=== PATIENT | female | born 1965 | race Caucasian/White ===

== ENCOUNTER → 2018-04-13 15:11 | Outpatient (CLI) | payer OTHER, SELFPAY ==
--- NOTE | 2018-04-13 15:14 | DI.RAD.S_ITS ---
PROCEDURE: XR ANKLE RT MIN 3V INDICATIONS: EDEMA OF LOWER EXTREMITY,OSTEOARTHRITIS,OBESITY TECHNIQUE: 3 views of the ankle were acquired. COMPARISON: [facility], , ANKLE 3 VIEWS RIGHT, 11/17/2013, 15:58. FINDINGS: Bones: No fractures or dislocations. Ankle mortise is normally aligned. No suspicious bony lesions. Accessory ossicles versus old avulsions distal to the medial malleolus again noted. There are additional dystrophic calcifications over the ankle anteromedially, likely degenerative or posttraumatic. Small exostosis medial margin of the medial malleolus. Small plantar spur posterior calcaneus. Soft tissues: Lateral soft tissue swelling. No tibiotalar joint effusion. Achilles tendon appears normal. IMPRESSION: 1. No acute fracture or mortise asymmetry. 2. Increasing periarticular calcifications. Interval development of small exostosis medial malleolus. Dictated by: Brenden Fernandez M.D. on 04/13/2018 at 15:42 Approved by: Brenden Fernandez M.D. on 04/13/2018 at 15:46
[2018-04-13 16:25] LABS: Add Manual Diff / Slide Review NO; Basophils Percent Auto 0.9 % (0-2); Hematocrit 39.9 % (36-46); Hemoglobin 13.5 g/dL (12.0-16.0); Mean Corpuscular HGB Conc 33.8 % (30-36); Mean Corpuscular Hemoglobin 31.8 PG (26-34); Mean Corpuscular Volume 94.2 fL (80-100); Monocytes Percent Auto 7.7 % (3-14); Neutrophils Absolute Auto 4100 /uL (3000-5900); Neutrophils Percent Auto 50.4 % (50-75); Platelet Count 337 X10^3/uL (150-400); Red Blood Cell Count 4.24 X10^6/uL (4.0-5.2); Red Cell Distribution Width 13.2 % (11.6-14.8); White Blood Cell Count 8.1 X10^3/uL (4.5-11.0)
[2018-04-13 16:26] LABS: D Dimer < 200 ng/mL (<230)
[2018-04-13 16:56] LABS: Alanine Aminotransferase 38 IU/L (9-52); Albumin 4.7 g/dL (3.5-5.0); Albumin Globulin Ratio 1.6 (1.0-2.8); Alkaline Phosphatase 86 U/L (38-126); Aspartate Aminotransferase 22 IU/L (14-36); Bilirubin Total 0.5 mg/dL (0.2-1.3); Blood Urea Nitrogen 18 mg/dL (7-17); C-Reactive Protein Quant 0.7 mg/dL (<1.0); Carbon Dioxide 27 mmol/L (22-32); Chloride 101 mmol/L (98-107); Estimated Glomerular Filt Rate > 60.0 mL/min (>60); Glucose 95 mg/dL (70-100); HEMOLYSIS < 15 (0-50); Potassium 4.3 mmol/L (3.4-5.1); Sodium 141 mmol/L (137-145); Total Protein 7.7 g/dL (6.3-8.2)
[2018-04-13 17:25] LABS: Erythrocyte Sedimentation Rate 11 MM/HR (0-20)
== END ==
PROVIDERS: PCP Family Medicine; Visit Provider Internal Medicine
DX: M84.871 Other disorders of continuity of bone, right ankle and foot (principal); R60.0 Localized edema; M19.90 Unspecified osteoarthritis, unspecified site; E66.9 Obesity, unspecified
CPT/HCPCS: 36415; 73610; 80053; 84443; 85025; 85379; 85651; 86140

== ENCOUNTER → 2018-08-06 17:31 | Outpatient (CLI) | payer OTHER, SELFPAY ==
[2018-08-06 17:49] LABS: Hematocrit 37.5 % (36-46); Hemoglobin 12.7 g/dL (12.0-16.0); Mean Corpuscular HGB Conc 33.8 % (30-36); Mean Corpuscular Hemoglobin 32.2 PG (26-34); Mean Corpuscular Volume 95.3 fL (80-100); Platelet Count 307 X10^3/uL (150-400); Red Blood Cell Count 3.93 X10^6/uL (4.0-5.2); Red Cell Distribution Width 13.9 % (11.6-14.8); White Blood Cell Count 8.9 X10^3/uL (4.5-11.0)
[2018-08-06 18:07] LABS: Alanine Aminotransferase 39 IU/L (9-52); Albumin 4.7 g/dL (3.5-5.0); Albumin Globulin Ratio 1.7 (1.0-2.8); Alkaline Phosphatase 67 U/L (38-126); Aspartate Aminotransferase 24 IU/L (14-36); BUN Creatinine Ratio 25.7 (6-22); Bilirubin Total 0.4 mg/dL (0.2-1.3); Bilirubin Unconjugated 0.1 mg/dL (0.0-1.1); Blood Urea Nitrogen 18 mg/dL (7-17); Calcium 9.6 mg/dL (8.4-10.2); Carbon Dioxide 30 mmol/L (22-32); Chloride 105 mmol/L (98-107); Cholesterol 203 mg/dL (140-199); Estimated Glomerular Filt Rate > 60.0 mL/min (>60); Globulin 2.8 g/dL (1.7-4.1); Glucose 88 mg/dL (70-100); HDL Cholesterol 64 mg/dL (40-60); HEMOLYSIS < 15 (0-50); LDL Cholesterol Calculated 94 mg/dL (<100); Potassium 4.7 mmol/L (3.4-5.1); Sodium 145 mmol/L (137-145); Total Protein 7.5 g/dL (6.3-8.2); Triglycerides 224 mg/dL (35-150)
== END ==
PROVIDERS: PCP Family Medicine; Visit Provider Podiatrist
DX: B35.1 Tinea unguium (principal); E66.9 Obesity, unspecified; Z13.1 Encounter for screening for diabetes mellitus; Z13.220 Encounter for screening for lipoid disorders
CPT/HCPCS: 36415; 80053; 80061; 80076; 85027

== ENCOUNTER → 2018-10-07 10:38 | Outpatient (CLI) | payer OTHER, SELFPAY | PROVIDERS: Family Provider Family Medicine; PCP Family Medicine; Visit Provider Family Medicine | DX: J02.9 Acute pharyngitis, unspecified (principal) | CPT/HCPCS: 87070 ==

== ENCOUNTER → 2018-11-11 18:16 | Outpatient (REF) | payer OTHER, SELFPAY | LOC: LAB 18:16 | PROVIDERS: Family Provider Family Medicine; PCP Family Medicine; Visit Provider Otolaryngology | DX: J32.9 Chronic sinusitis, unspecified (principal); R51 Headache; H65.03 Acute serous otitis media, bilateral; H69.83 Other specified disorders of Eustachian tube, bilateral; J34.89 Other specified disorders of nose and nasal sinuses | CPT/HCPCS: 87070 ==

== ENCOUNTER → 2018-12-18 07:42 | Outpatient (CLI) | payer OTHER, SELFPAY ==
--- NOTE | 2018-12-18 | DI.CT.S_ITS ---
PROCEDURE: CT SINUS SCREEN WO CON INDICATIONS: FACIAL PAIN, NASAL OBSTRUCTION TECHNIQUE: Noncontrast 3.0 mm axial images acquired from the frontal sinuses to the mid-sella, with coronal and sagittal reformats. For radiation dose reduction, the following was used: automated exposure control, adjustment of mA and/or kV according to patient size. COMPARISON: None. FINDINGS: Image quality: Excellent. The paranasal sinuses are normally aerated. No mucosal thickening identified. No air-fluid levels identified. The osteomeatal units are patent bilaterally. No osseous thickening, osseous remodeling or osseous erosive changes. 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 Nasal septum is midline. No eliezer bullosa or paradoxical turbinates. Left lamina bullosa noted. Type I cribriform plate is noted. No variance in the ethmoid roof anatomy. The anterior ethmoid artery notches are protected bilaterally. The sphenoid sinus pneumatization pattern is sellar complete. The sphenoid intersinus septum is deviated to the right and attaches to the right osseous optic canal. IMPRESSION: No paranasal sinus mucosal thickening or air-fluid levels. Dictated by: Janina Blanco MD, PhD on 12/18/2018 at 10:06 Approved by: Janina Blanco MD, PhD on 12/18/2018 at 10:11
== END ==
PROVIDERS: Family Provider Family Medicine; PCP Family Medicine; Visit Provider Otolaryngology
DX: R51 Headache (principal); J34.89 Other specified disorders of nose and nasal sinuses; J34.2 Deviated nasal septum
CPT/HCPCS: 70486

== ENCOUNTER → 2019-01-15 13:21 | Outpatient (CLI) | payer OTHER, SELFPAY ==
[2019-01-15 14:19] LABS: Hematocrit 40.2 % (36-46); Hemoglobin 13.5 g/dL (12.0-16.0); Mean Corpuscular HGB Conc 33.6 % (30-36); Mean Corpuscular Hemoglobin 31.8 PG (26-34); Mean Corpuscular Volume 94.7 fL (80-100); Platelet Count 358 X10^3/uL (150-400); Red Blood Cell Count 4.25 X10^6/uL (4.0-5.2); Red Cell Distribution Width 13.8 % (11.6-14.8); White Blood Cell Count 9.2 X10^3/uL (4.5-11.0)
[2019-01-15 15:02] LABS: BUN Creatinine Ratio 25.7 (6-22); Blood Urea Nitrogen 18 mg/dL (7-17); Calcium 9.8 mg/dL (8.4-10.2); Carbon Dioxide 26 mmol/L (22-32); Chloride 101 mmol/L (98-107); Estimated Glomerular Filt Rate > 60.0 mL/min (>60); Glucose 101 mg/dL (70-100); HEMOLYSIS < 15 (0-50); Potassium 4.3 mmol/L (3.4-5.1); Sodium 140 mmol/L (137-145)
== END ==
PROVIDERS: PCP Family Medicine; Visit Provider Orthopaedic Surgery Orthopaedic Surgery of the Spine
DX: Z01.818 Encounter for other preprocedural examination (principal)
CPT/HCPCS: 36415; 80048; 85027

== ENCOUNTER 2019-02-03 06:58 | Inpatient (IN) | payer OTHER, SELFPAY ==
[2019-01-19 08:27] VITALS: BMI 39.4
[2019-02-03] VITALS (21 sets, daily range): BP systolic 105–140; BP diastolic 50–85; PULSE 68–96; RESP 10–20; TEMP 36.3–37.4; O2SAT 80–97; BMI 39.4
--- NOTE | 2019-02-03 | DI.RAD.S_ITS ---
PROCEDURE: XR LUMBAR SPINE 2-3V INDICATIONS: L3-4 TLIF FINDINGS: 2 limited intraoperative fluoroscopically stored images of the lower lumbar spine were obtained for intraoperative hardware localization purposes. These images are not meant for diagnostic purposes. Intraoperative findings related to a L3 for discectomy and fusion procedure are present. IMPRESSION: Intraoperative images obtained during the patient's lumbar fusion procedure. Dictated by: Vaibhav Mccarthy M.D. on 02/03/2019 at 11:13 Approved by: Vaibhav Mccarthy M.D. on 02/03/2019 at 11:14
--- NOTE | 2019-02-03 08:38 | SUR.OPER ---
Prone on spine table, head in foam head support, padded chest and pelvic supports, gel pad at knees, lower legs supported by pillows; nipples, genitalia and toes free of pressure, arms secured on foam padded arm boards at <90 degrees abduction. Tape over blanket at thigh secured to table.
[2019-02-03] MEDS: CLINDAMYCIN 900 MG/50 ML PIGGYBACK 50 MG IV ×2 (08:50→18:04)
[2019-02-03] MEDS: BUPIVACAINE 0.25% W/ EPI 30 ML VIAL INJ (09:31)
[2019-02-03] MEDS: BUPIVACAINE LIPOSOME 266 MG/20 ML VIAL INJ (09:34)
[2019-02-03] MEDS: LACTATED RINGERS 1,000 ML 42 ML IV (11:13)
--- NOTE | 2019-02-03 11:33 | PM.OP.1 ---
Operative Date/Time/Diagnoses Date of procedure: 02/03/19 Time of procedure: 09:19 Pre-op diagnosis: 1. L3-4 spondylolisthesis 2. L3-4 spinal stenosis Post-op diagnosis: same Procedure & Clinicians Procedure: 1. L3-4 Postero-lateral and posterior interbody fusion 2. L3-4 interbody cage placement. 3. L3-4 decompressive laminectomy with bilateral facetecomies 4. L3-4 Posterior non-segmental instrumentation 5. [place] of bone marrow from iliac crest 6. Utilization of microsurgical technique and operating microscope Same procedure as scheduled: Yes Indications: Patient has been having chronic back pain and worsening lumbar radiculopathy. Patient failed multiple conservative management with worsening pain weakness and numbness in her lower extremity. Patient has been having difficulty performing activity of daily living. After discussing risks benefits of treatment options, patient elected proceed with surgery. Surgeon: Buddy Johns Metal Grinder: Gillian Tarango Click Yes if Unassisted: No Anesthesia Type: General Operative Notes Closure Type: primary Specimen(s): none sent Prosthetic devices, grafts, tissues, transplants, or devices: Globus revolve, Rise cage Estimated Blood Loss (mL): 50 Blood products transfused: none Procedure in detail: Patient was seen in the preoperative area. Risks and benefits of the surgery was discussed with the patient. Informed consent was obtained from the patient and placed in the chart. Surgical site was marked. Patient was taken to the operative room. General anesthesia was administered. Prophylactic antibiotic was given to the patient less than 30 min before the incision was made. Patient was placed into a prone position on the Noah table. Patient's back was then prepped and draped in the sterile fashion. Time-out was performed at this time. Using AP and lateral C-arm imaging the interval between L3-4 was identified and marked on patient's back. A 2 inch incision 2 in from midline was made on the right side first. The fascia was incised in line with skin incision. Globus MARS retractors was placed inside the incision and docked onto the L3 lamina. Using microsurgical technique and operating microscope, a L3 laminectomy and L3-4 facetectomy was performed using a Kerrison rongeur. the patient was found have moderate central and severe neural foramen stenosis. More than 75% of the facet was removed in the process of decompression which rendered the L3-4 level grossly unstable and warranted a fusion procedure. The disc space at L3-4 was identified. And a total diskectomy was performed at L3-4 level. The endplates were decorticated using a rasp and shaver. The total diskectomy and decortication was performed at L3-4 level in order to to accomplish a L3-4 fusion. The local bone from the laminectomy and facetectomy was saved for local bone grafting. After the total diskectomy and decortication was completed, Globus viacell bone graft material was combined with local bone that was harvested earlier. At this time, a separate skin is incision was made over the iliac crest. A Jamshidi needle was inserted into the iliac crest through a separate skin incision. 5 cc of bone marrow aspiration was obtained through the separate skin incision using a Jamshidi needle from the iliac crest. The bone marrow aspiration was combined with local bone and the Bio4 bone grafting material. The bone grafting material was placed into the L3-4 interbody space along with a expandable cage. The cage was expanded to its maximum height using the torque limiting screwdriver. At this time a mirror image incision was made on the left side. The fascia was incised in line with the skin incision. Globus MARS retractor was inserted and docked onto the L3-4 posterolateral gutter. Using the power drill, posterior-lateral decortication was performed at L4-5 level until bleeding cortical bone was identified. The remaining bone grafting material was placed into the L4-5 posterior lateral gutter he order to accomplish posterolateral fusion at the L4-5 level. Using the double C-arm technique, pedicle screws were placed into the L4-5 pedicles bilaterally. This was done by placing the Jamshidi needle into the pedicles, then placing the guidewires over the Jamshidi needle, and finally placing the cannulated screws over the guidewires bilaterally. After the pedicle screws were placed, 2 titanium rods was locked into the heads of the pedicle screws using locking caps and torque limiting screwdriver. After all the hardware was placed, and confirmed with AP and lateral C-arm imaging, the wound was then irrigated with sterile normal saline and packed with Ray-Wing gauze for 3 min to accomplish hemostasis. After the gauze was removed the deep fascia was closed with #1 Vicryl suture. The subcutaneous layer was closed with 2-0 Vicryl. The skin was closed with skin johnathon. Patient tolerated the procedure well. There were no complications. Complications: none Condition: stable Disposition: PACU Plan for aftercare: Admit to inpatient hospital
[2019-02-03] MEDS: LORazepam 2 MG/ML SYRINGE 0.5 MG IV ×2 (11:51→12:30)
[2019-02-03] MEDS: fentaNYL 100 MCG/2 ML INJ 50 MCG IV (11:55)
[2019-02-03] MEDS: hydrOXYzine 50 MG/ML INJ IM (12:13)
[2019-02-03] MEDS: SODIUM CHLORIDE 0.9% 1,000 ML 100 ML IV (13:40)
--- NOTE | 2019-02-03 14:08 | PC.NURSE ---
Addendum entered by Ann Rogers R.N. 02/03/19 14:26: PAIN - more alert, watching tv with sister at bedside, states pain 6 on scale 0/10, has been taking oxycodone prior to surg, given 10mg po now with juice and crackers. Original Note: POST OP ARRIVAL 1310 - drowsy, responds to voice, opens eyes, speech clear, states back discomfort 6 on scale 0/10, barrier dsg cdi, bs clear, 3l 93-94%, per Ray in pacu, given ativan prior to tsf to floor for discomfort and spasm, ice pack applied with repositioning, pt able to answer questions, quickly returns to sleep with light snore unless aroused, family at bedside, given few ice chips when alert, footie scd on, denies numbness to le or feet, moving easily on command.
[2019-02-03] MEDS: ACETAMINOPHEN 325 MG TABLET 650 MG PO (14:18)
[2019-02-03] MEDS: OXYCODONE IR 5 MG TABLET 10 MG PO ×4 (14:22→23:33)
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
--- NOTE | 2019-02-03 19:09 | PC.NURSE ---
Patient resting in bed most of the shift. Up to the bathroom earlier this shift. Had some ice packs to back that started leaking. Pt able to get oob with SBA and FWW, gait steady, CMS(+). Dry clothes put on and bedding. Percolone effective for pain control.
[2019-02-03] MEDS: SENNOSIDES 8.6 MG TABLET 17.2 MG PO (19:54)
[2019-02-03] MEDS: hydrOXYzine pamoate 25 MG CAPSULE PO (19:55)
[2019-02-03] MEDS: DOCUSATE 100 MG CAPSULE PO (19:55)
[2019-02-03] MEDS: AMITRIPTYLINE 25 MG TABLET PO (19:55)
[2019-02-04] MEDS: SODIUM CHLORIDE 0.9% 1,000 ML 100 ML IV (00:52)
[2019-02-04] MEDS: hydrOXYzine pamoate 25 MG CAPSULE PO ×3 (01:21→20:00)
[2019-02-04] MEDS: CLINDAMYCIN 900 MG/50 ML PIGGYBACK 50 MG IV (02:17)
[2019-02-04] MEDS: OXYCODONE IR 5 MG TABLET 10 MG PO ×2 (02:33→05:52)
[2019-02-04] MEDS: HYDROMORPHONE 1 MG INJ 0.5 MG IV (04:48)
[2019-02-04 05:51] VITALS: BP 99/53; PULSE 66; RESP 16; TEMP 37.1; O2SAT 95
[2019-02-04 06:09] LABS: Hematocrit 34.7 % (36-46); Hemoglobin 11.6 g/dL (12.0-16.0)
--- NOTE | 2019-02-04 07:16 | PM.PNPO.1 ---
Subjective Date Patient Seen: 02/04/19 Interval history: Patient is seen bedside status post L3-4 TLIF POD #1. Patient is moving well, however she is in significant pain. oxycodone 10 mg along with Dilaudid IV are not enough to control her pain to a reasonable level. She denies any numbness and tingling. No fevers chills shortness of breath chest pain Exam Vital Signs (past 8 hours): - 02/03/19 23:45 02/04/19 05:51 Temperature 98.8 F 98.8 F Pulse Rate 68 66 Respiratory Rate 16 16 Blood Pressure 105/50 L 99/53 L Pulse Oximetry 93 95 Oxygen Delivery Method Nasal Cannula Oxygen Flow Rate 0 Narrative Exam Narrative: Well-developed, well-nourished, no acute distress. Alert and oriented to person, place, and time. Dressing on lumbar spine is clean, dry, and intact with no signs of drainage. Minimal erythema and generalized swelling around the surgical site. Neurovascularly intact in bilateral lower extremities with soft and compressible calves. Range of motion intact bilateral lower extremities. Objective Labs Result Diagrams: 02/04/19 05:00 Labs: Laboratory Results - last 24 hr 02/04/19 05:00 Hgb 11.6 L Hct 34.7 L Assessment & Plan Post-op Postoperative Procedures Operation Date: 02/03/19 08:45 Actual Procedures Side Surgeon p L3-4 TLIF Buddy Johns MD 1. Postop day 1. Status post above procedure-add steroid burst to help with the pain along with gabapentin. DC IV Dilaudid due to low blood pressure. Add a 15 mg dose of oxycodone as needed for severe pain. PT/OT with lumbar precautions. Possible DC tomorrow if pain is controlled.
[2019-02-04 07:20] VITALS: BP 105/60; PULSE 62; RESP 16; TEMP 36.8; O2SAT 94
[2019-02-04] MEDS: OXYCODONE IR 5 MG TABLET 15 MG PO ×5 (08:40→21:43)
[2019-02-04] MEDS: GABAPENTIN 100 MG CAPSULE 200 MG PO ×3 (08:41→20:44)
[2019-02-04] MEDS: DOCUSATE 100 MG CAPSULE PO ×2 (08:42→20:44)
[2019-02-04] MEDS: DEXAMETHASONE 4 MG TABLET 8 MG PO (08:42)
[2019-02-04] MEDS: FLUTICASONE 120 SPRAY/16 GM SPRAY.SUSP NASAL (08:43)
--- NOTE | 2019-02-04 09:26 | PT.IPTN ---
Current Diagnoses Foot drop, right foot (02/03/19) Spondylolisthesis, lumbar region (02/03/19) Spinal stenosis, lumbar region without neurogenic claudication (02/03/19) Surgery Performed Operation Date: 02/03/19 08:45 Actual Procedures p L3-4 TLIF - Buddy Johns MD Physical Therapy Treatment Note M2 PT-IP Current Condition Start: 02/03/19 17:01 Freq: NEEDED Status: Active Protocol: Document 02/03/19 15:44 AB (Rec: 02/03/19 17:17 AB [id number]) Physical Therapy Current Condition Current Condition Evaluation Date 02/03/19 Treatment Diagnosis L3-4 fusion/lami; difficulty in walking Onset Date 02/03/19 Precautions Lumbar Precautions Log Roll No Twisting Limit Bending Lifting Restriction of 10 lbs Gait Belt above Incisional Area M3 PT-IP Subjective Start: 02/03/19 17:01 Freq: NEEDED Status: Active Protocol: Document 02/04/19 09:26 AB (Rec: 02/04/19 10:58 AB [id number]) Subjective Physical Therapy Visit Type Type Treatment Note Visit Start Time 09:26 Visit Stop Time 10:14 Total Visit Minutes 48 Number of FISH DRIER Visits 0 Physical Therapy Visit Comments Patient Comments pt agreeable to do PT Therapy Pain Assessment Pain When Pain Assessed At Rest Pain Present Pain Present Pain Reported Location Back Intensity 5 Scale Used Numeric (1 - 10) Pain Management Techniques Re-positioning Timing of Activity with Medications M4 PT-IP Mobility and Gait Start: 02/03/19 17:01 Freq: NEEDED Status: Active Protocol: Document 02/04/19 09:26 AB (Rec: 02/04/19 10:58 AB [id number]) PT-Bed Mobility Assessment Supine to Sit Supine to Sit Standby Assistance Head of Bed Elevated Sit to Supine Sit to Supine Standby Assistance PT-Transfer Assessment Sit to and From Stand Sit to and from Stand Contact Guard Assistance Equipment Transfer Assistive Device Gait Belt Front Wheeled Walker Comments Mobility Comments pt in bed with HOB elevated. pt stated that she will use her recliner to sleep on at home and wants to get out of bed with HOB elevated during tx session. pt completed with cues to maintain back precautions SBA. pt agreed to do log roll technique getting back into bed requiring SBA and cues for technique. caregiver training initiated with daughter assisting pt and daughter was able to don safety belt on pt and assist pt with sit to stand and ambulation. also assisted pt with stair training. pt completed sit <> stand x 4 reps CGA and cues for techniques. Gait Assessment Gait Gait Assistance Required: Standby Assistance Contact Guard Assist Distance (Feet) 150 Able to Maintain Weight Bearing Status Yes During Gait Assistive Devices Assistive Device Gait Belt Front Wheeled Walker Orthotic/Prosthetic Devices or Brace: No Gait Deviations General Gait Pattern Antalgic Factors Limiting Gait Function Factors Limiting Gait Function Decreased Activity Tolerance Decreased Strength Limited Range of Motion Pain Comments Gait Comments pt completed ambulation 150 ft + 100 ft using FWW CGA. Stair Climbing Assessment Evaluation Level of Assist On Stairs Contact Guard Assistance Devices Stair Climbing Assistive Devices Straight Cane Technique/Endurance Stair Climbing Direction Ascend and Descend Stair Climbing Technique Step to Step Number of Steps Climbed 1 Query Text: Stair Climbing Set # Repetitions (reps) 2 M5 PT-IP Objective Assessments Start: 02/03/19 17:01 Freq: NEEDED Status: Active Protocol: Document 02/03/19 15:44 AB (Rec: 02/03/19 17:17 AB [id number]) Orientation Orientation/Cognition Level of Alertness Alert Orientation Name Age Birthday Month Date Year Day of Week Place Situation Safety Awareness Decreased Safety Awareness Memory Description Short Term Impaired Gross Range of Motion Lower Extremity ROM Assessment Within Functional Limits Strength Lower Extremity Strength Assessment Bilaterally Impaired Hip 4-/5 Knee 4-/5 Coordination Assessment Gross Coordination Gross Coordination WNL Sensation Assessment Sensation Gross Sensation WNL Muscle Tone Muscle Tone WNL Yes M6 PT-IP Treatment Start: 02/03/19 17:01 Freq: NEEDED Status: Active Protocol: Document 02/04/19 09:26 AB (Rec: 02/04/19 10:58 AB [id number]) Physical Therapy Treatment Education Education Provided Precautions Safety M7 PT-IP Assessment and Plan Start: 02/03/19 17:01 Freq: NEEDED Status: Active Protocol: Document 02/04/19 09:26 AB (Rec: 02/04/19 10:58 AB [id number]) PT Summary Assessment and Plan Potential Rehabilitation Potential Good Summary Impairments Pain ROM Strength Balance Coordination Sensation Tone Bed Mobility Transfers Gait Activity Tolerance Progress Towards Goals Progressing Toward Goals Assessment Summary pt progressing with mobility. caregiver training initiated and daughter was able to assist pt safely. pt may go home when medically stable. Goals Bed Mobility Goal Independent Transfer Goal Independent Front Wheeled Walker Gait Goal Independent Front Wheel Walker Gait Distance 200 Other Goals up/down 2 steps using FWW/ SPC SBA Days to Meet Goals 3 Frequency of Treatment Frequency Of Treatment Twice a Day Treatment Plan Physical Therapy Treatment Plan Bed Mobility Training Transfer Training Gait Training Therapeutic Exercise Balance Retraining Post Op Education Discharge Planning Hot or Cold Pack Neuromuscular Re-ed Coordination Retraining Manual Therapy Other Recommendations and Next Treatment bed mobility, ambulation, Focus stair climbing, caregiver training Recommendations To Nursing Amount of Assist Needed 1 Person Assist Discharge Recommendations PT Discharge Recommendations Home with Assistance Equipment Needed for Home Before FWW/SPC: pt will try to Discharge acquire AD
[2019-02-04 11:19] VITALS: BP 115/62; PULSE 73; RESP 16; TEMP 36.6; O2SAT 93
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
--- NOTE | 2019-02-04 11:44 | PC.NURSE ---
Addendum entered by Ann Rogers R.N. 02/04/19 13:53: MS/PAIN - given 15mg po oxycodone at lunch for afternoon phys therapy, then up w/fww, ambul hallway with PT, gait steady, reports that pain is much better. Original Note: AM NOTE - pt was up to chair before breakfast, states back discomfort 6 on scale 0/10 and has had some difficulty getting comfortable in bed or chair, barrier dsg back with small amt shadow drainage, Fara Aly PA-C in this am and discussed pain mgt, new orders rec'd and started po dexamethasone, gabapentin and after breakfast given 15mg po oxycodone, able ambul with phys therapy with medication providing adequate relief.
--- NOTE | 2019-02-04 12:48 | CM.IDA ---
Discharge Planning/Care Management CM Discharge Assessment Start: 02/04/19 12:43 Freq: Status: Active Protocol: Document 02/04/19 12:43 EILEEN (Rec: 02/04/19 12:48 EILEEN [id number]) Discharge Planning Assessment Assigned Desk Director ANDRIA Willett DPOA/Assigned Designee Name Shannen natalee Mckee Contact Information [phone] Advance Directives? Yes Advance Directives on File Yes History Provided By Patient Prior Living Arrangements Apartment/Condo Household Members none Type of transporation used prior to Drives own vehicle admit Independent with ADL's Yes Is patient alert and oriented? Yes Barriers to Discharge No Comment Pt is POD#1 from Spinal surgery w/ Dr Johns. Payer: [employer]. Reviwed chart. Met w/pt and explained role. Pt says she did not sleep well last night and would like to take a nap. PT has cleared pt for return home w/dtr to assist. Pt states no barriers to DC home, denies SW needs. P: Home, likely Friday, no anticipated needs. ANDRIA Landis Discharge Plan Home Transportation Arrangement Family Referrals Initiated None needed Whiteboard Updated in Patient Room with Yes name and ext. # of Desk Director Review Status In Process
--- NOTE | 2019-02-04 13:20 | PT.IPTN ---
Current Diagnoses Foot drop, right foot (02/03/19) Spondylolisthesis, lumbar region (02/03/19) Spinal stenosis, lumbar region without neurogenic claudication (02/03/19) Surgery Performed Operation Date: 02/03/19 08:45 Actual Procedures p L3-4 TLIF - Buddy Johns MD Physical Therapy Treatment Note M2 PT-IP Current Condition Start: 02/03/19 17:01 Freq: NEEDED Status: Active Protocol: Document 02/03/19 15:44 AB (Rec: 02/03/19 17:17 AB [id number]) Physical Therapy Current Condition Current Condition Evaluation Date 02/03/19 Treatment Diagnosis L3-4 fusion/lami; difficulty in walking Onset Date 02/03/19 Precautions Lumbar Precautions Log Roll No Twisting Limit Bending Lifting Restriction of 10 lbs Gait Belt above Incisional Area M3 PT-IP Subjective Start: 02/03/19 17:01 Freq: NEEDED Status: Active Protocol: Document 02/04/19 13:20 AB (Rec: 02/04/19 14:07 AB [id number]) Subjective Physical Therapy Visit Type Type Treatment Note Visit Start Time 13:20 Visit Stop Time 13:53 Total Visit Minutes 33 Number of PROSTHODONTIST/EDUCATOR Visits 0 Physical Therapy Visit Comments Patient Comments pt agreeable to do PT Therapy Pain Assessment Pain When Pain Assessed At Rest Pain Present Pain Present Pain Reported Location Back Intensity 2 Scale Used Numeric (1 - 10) Pain Management Techniques Timing of Activity with Medications M4 PT-IP Mobility and Gait Start: 02/03/19 17:01 Freq: NEEDED Status: Active Protocol: Document 02/04/19 13:20 AB (Rec: 02/04/19 14:07 AB [id number]) PT-Bed Mobility Assessment Supine to Sit Supine to Sit Standby Assistance Bedrails Sit to Supine Sit to Supine Standby Assistance Scooting Scooting to Edge of Bed Standby Assistance Scooting Up and Down in Bed Standby Assistance PT-Transfer Assessment Sit to and From Stand Sit to and from Stand Standby Assistance Contact Guard Assistance Equipment Transfer Assistive Device Gait Belt Front Wheeled Walker Orthotic/Prosthetic Devices or Brace: No Comments Mobility Comments requires cues for bed mobility log roll supine<>sit. completed sit <> stand x 4 reps SBA to CGA with cues for safety Gait Assessment Gait Gait Assistance Required: Standby Assistance Distance (Feet) 250 Able to Maintain Weight Bearing Status Yes During Gait Assistive Devices Assistive Device Gait Belt Front Wheeled Walker Orthotic/Prosthetic Devices or Brace: No Gait Deviations General Gait Pattern Antalgic Factors Limiting Gait Function Factors Limiting Gait Function Decreased Activity Tolerance Decreased Strength Limited Range of Motion Pain Poor Balance M5 PT-IP Objective Assessments Start: 02/03/19 17:01 Freq: NEEDED Status: Active Protocol: Document 02/03/19 15:44 AB (Rec: 02/03/19 17:17 AB [id number]) Orientation Orientation/Cognition Level of Alertness Alert Orientation Name Age Birthday Month Date Year Day of Week Place Situation Safety Awareness Decreased Safety Awareness Memory Description Short Term Impaired Gross Range of Motion Lower Extremity ROM Assessment Within Functional Limits Strength Lower Extremity Strength Assessment Bilaterally Impaired Hip 4-/5 Knee 4-/5 Coordination Assessment Gross Coordination Gross Coordination WNL Sensation Assessment Sensation Gross Sensation WNL Muscle Tone Muscle Tone WNL Yes M6 PT-IP Treatment Start: 02/03/19 17:01 Freq: NEEDED Status: Active Protocol: Document 02/04/19 13:20 AB (Rec: 02/04/19 14:07 AB [id number]) Physical Therapy Treatment Education Education Provided Precautions Safety M7 PT-IP Assessment and Plan Start: 02/03/19 17:01 Freq: NEEDED Status: Active Protocol: Document 02/04/19 13:20 AB (Rec: 02/04/19 14:07 AB [id number]) PT Summary Assessment and Plan Potential Rehabilitation Potential Good Summary Impairments Pain ROM Strength Balance Bed Mobility Transfers Gait Activity Tolerance Progress Towards Goals Progressing Toward Goals Assessment Summary pt progressing well with mobility and requiring SBA to occasional CGA with mobility. pt plans to go home with family to assist her. Goals Bed Mobility Goal Independent Transfer Goal Independent Front Wheeled Walker Gait Goal Independent Front Wheel Walker Gait Distance 200 Other Goals up/down 2 steps using FWW/ SPC SBA Days to Meet Goals 3 Frequency of Treatment Frequency Of Treatment Twice a Day Treatment Plan Physical Therapy Treatment Plan Bed Mobility Training Transfer Training Gait Training Therapeutic Exercise Balance Retraining Post Op Education Discharge Planning Hot or Cold Pack Neuromuscular Re-ed Coordination Retraining Manual Therapy Other Recommendations and Next Treatment bed mobility, ambulation, Focus stair climbing, caregiver training Recommendations To Nursing Amount of Assist Needed 1 Person Assist Discharge Recommendations PT Discharge Recommendations Home with Assistance Equipment Needed for Home Before FWW/SPC: pt will try to Discharge acquire AD
[2019-02-04] MEDS: DEXAMETHASONE 4 MG TABLET PO ×2 (15:46→23:34)
[2019-02-04 15:53] VITALS: BP 112/58; PULSE 70; RESP 18; TEMP 37.2; O2SAT 93
[2019-02-04 20:00] VITALS: BP 110/72; PULSE 79; RESP 18; TEMP 37.1
[2019-02-04] MEDS: SENNOSIDES 8.6 MG TABLET 17.2 MG PO (20:44)
[2019-02-04] MEDS: AMITRIPTYLINE 25 MG TABLET PO (20:44)
[2019-02-04] MEDS: MAGNESIUM HYDROXIDE 30 ML UDC PO (20:51)
[2019-02-05 00:16] VITALS: BP 110/53; PULSE 76; RESP 16; TEMP 36.9; O2SAT 94
[2019-02-05] MEDS: OXYCODONE IR 5 MG TABLET 15 MG PO ×4 (00:43→10:07)
[2019-02-05] MEDS: ACETAMINOPHEN 325 MG TABLET 650 MG PO ×2 (02:09→08:57)
[2019-02-05] MEDS: hydrOXYzine pamoate 25 MG CAPSULE PO (02:09)
[2019-02-05 05:37] VITALS: BP 124/61; PULSE 70; RESP 16; TEMP 37; O2SAT 94
--- NOTE | 2019-02-05 05:38 | PC.NURSE ---
HYDROELECTRIC SYSTEMS TECHNICIAN note: Patient ambulated the halls with walker.
[2019-02-05] MEDS: DEXAMETHASONE 4 MG TABLET PO (06:48)
[2019-02-05 07:34] VITALS: O2SAT 94
[2019-02-05] MEDS: FLUTICASONE 120 SPRAY/16 GM SPRAY.SUSP NASAL (08:52)
[2019-02-05] MEDS: DOCUSATE 100 MG CAPSULE PO (08:52)
[2019-02-05] MEDS: GABAPENTIN 100 MG CAPSULE 200 MG PO (08:52)
[2019-02-05 09:00] VITALS: BP 140/72; PULSE 70; RESP 16; TEMP 36.4; O2SAT 93
--- NOTE | 2019-02-05 09:48 | PM.DS.1 ---
History of Present Illness Date Patient Seen: 02/05/19 Time Patient Seen: 09:49 Chief complaint: [id number] L3-4 TLIF Narrative: Patient has been having chronic back pain and worsening lumbar radiculopathy. Patient failed multiple conservative management with worsening pain weakness and numbness in her lower extremity. Patient has been having difficulty performing activity of daily living. After discussing risks benefits of treatment options, patient elected proceed with surgery. Discharge Providers Date of admission: 02/03/19 06:58 Discharge Date: 02/05/19 Primary care physician: Halle Russo DO Consults: 02/03/19 12:59 Consult to Occupational Therapy Evaluate & Treat Comment: Physician Instructions: Evaluate and treat Consult to Physical Therapy Evaluate & Treat Comment: Physician Instructions: Evaluate and Treat Discharge provider: Erika Barroso PA-C Summary Discharge Diagnosis: s/p lumbar fusion Spinal stenosis Hospital Course: Dayna was admitted for lumbar fusion with Dr. Johns. She consented to procedure. Hospital course was unremarkable. On Postop day 2. Patient was ready for discharge home. She was eating and voiding without difficulty or assistance. She did have some pain control issues on postop day 1 and had a burst of steroids. On postop day 2 her pain was well controlled on gabapentin, 15 mg of oxycodone, and Vistaril. She has been up and ambulating with physical therapy with her walker. Status at Discharge Functional status at discharge: uses cane/walker Exam Vital Signs (past 8 hours): - 02/05/19 05:37 02/05/19 07:34 Temperature 98.6 F Pulse Rate 70 Respiratory Rate 16 Blood Pressure 124/61 Pulse Oximetry 94 94 Oxygen Delivery Method Room Air Oxygen Flow Rate 0 Narrative Exam Narrative: Patient is sitting at bedside chair no acute distress. She is alert and oriented x3. Dressing just changed to cover site dressing. Her pain was well-controlled last night. She had just worked with physical therapy. Objective Labs Result Diagrams: 02/04/19 05:00 Discharge Plan Discharge Plan Patient Disposition: Home Discharge Med Rec/Prescriptions Prescriptions: New acetaminophen 325 mg Tablet 650 mg PO Q6HR PRN (Reason: Pain, Mild (1-3)) Qty: 60 RF: 0 docusate sodium 100 mg Capsule 100 mg PO BID Qty: 60 RF: 0 gabapentin 100 mg Capsule 200 mg PO TID Qty: 50 RF: 0 hydroxyzine pamoate 25 mg Capsule 25 mg PO Q6HR Qty: 50 RF: 0 oxycodone 5 mg capsule 5 mg PO Q4-6H PRN (Reason: pain) Qty: 90 RF: 0 Continued fluticasone propionate [Flonase Allergy Relief] 50 mcg/actuation spray,suspension 1 spray NASAL DAILY Qty: 9.9 RF: 2 albuterol sulfate 90 mcg/actuation HFA aerosol inhaler 1 inhalation INHALATION Q4-6H PRN (Reason: shortness of breath) Qty: 8 RF: 0 biotin 2,500 mcg tablet 2,500 mcg PO BID RF: 0 turmeric root extract 500 mg capsule 1,000 mg PO DAILY RF: 0 lorazepam 0.5 mg tablet 0.5 mg PO Q6HP PRN (Reason: anxiety) Qty: 30 RF: 1 amitriptyline 25 mg tablet 25 mg PO BEDTIME Qty: 90 RF: 1 cyclobenzaprine 10 mg tablet 10 mg PO TID PRN (Reason: Muscle Spasm) RF: 0 Discontinued diclofenac sodium 75 mg tablet,delayed release (DR/EC) 75 mg PO BID Qty: 180 RF: 0 oxycodone 5 mg Capsule 5 mg PO Q4-6H PRN (Reason: pain) RF: 0 Follow up/Referrals: Buddy Johns MD [Physician] - Provider Discharge Instructions Activity: No excessive bending, lifting, or twisting. Cold/Heat Therapy: as needed Skin/Wound/Dressing Care Report to your healthcare provider any signs of infection, such as:: chills, fever and increased pain Dressing: leave in place until appointment Visit Report/Discharge Packet Instructions: Oxycodone, Hydroxyzine, DI for Transforaminal Lumbar Interbody Fusion Discharge Data Primary Care Provider: Halle Russo Attending Provider: Buddy Johns Admit Date/Time: 02/03/19 06:58
--- NOTE | 2019-02-05 09:55 | OT.IP.TRT ---
Current Diagnoses Foot drop, right foot (02/03/19) Spondylolisthesis, lumbar region (02/03/19) Spinal stenosis, lumbar region without neurogenic claudication (02/03/19) Surgery Performed Operation Date: 02/03/19 08:45 Actual Procedures p L3-4 TLIF - Buddy Johns MD Occupational Therapy Treatment Note M2 OT-IP Current Condition Start: 02/04/19 16:07 Freq: Status: Active Protocol: Document 02/04/19 11:38 PJM (Rec: 02/04/19 16:20 PJM [id number]) Occupational Therapy Current Condition Current Condition Evaluation Date 02/04/19 Treatment Diagnosis decreased mobility, self care s/p L3-4 lami, TLIF Post Operative Precautions Lumbar Precautions Log Roll No Twisting Limit Bending Lifting Restriction of 10 lbs Gait Belt above Incisional Area M3 OT- IP Subjective and Pain Start: 02/04/19 16:07 Freq: Status: Active Protocol: Document 02/05/19 09:45 CCC (Rec: 02/05/19 09:55 CCC [email or web address]) OT- Subjective Occupational Therapy Visit Type Type Treatment Note Visit Start Time 08:45 Visit Stop Time 09:40 Total Visit Minutes 55 Occupational Therapy Visit Comments Patient Comments Pt wanting to shower, pt's daughter present for Ot session. OT Pain Assessment Pain When Pain Assessed At Rest Pain Present Pain Present Pain Reported Location Back Intensity 4 Scale Used Numeric (1 - 10) M4 OT- IP ADL's Start: 02/04/19 16:07 Freq: Status: Active Protocol: Document 02/05/19 09:45 CCC (Rec: 02/05/19 09:55 CCC [email or web address]) OT ADL-Grooming General Evaluation Grooming Ability Independent OT ADL-Dressing General Eval Upper Body Dressing Ability Independent Lower Body Dressing Ability Standby Assistance Comments OT Dressing Comments After education of sock aid and shrink pit operator, pt SBA, pt still has a tendency to twist. OT ADL-Toileting General Evaluation Toileting Ability Independent Comments OT Toileting Comments Pt able to stand and bend at hip to reach adequately for pericare needs and therefore does not feel that she will need toilet aid. OT ADL-Bathing Bathing Type Bathing Type Shower General Evaluation Bathing Ability Minimal Assistance Areas Needing Assistance Wash/Dry Back Devices Bathing Equipment Hand Held Shower Sprayer Grab Bars Comments OT Bathing Comments Pt educated as has small shower stall to have someone there to help as needed. Pt heavily relies on grab bars as at home shower so small would be able to lean or hold to the [place] of the shower. Pt states will use a miguelina robe to dry off at home. Educated to wash her feet afterwards with wash cloth while sitting on toilet for safety or have someone assist. M5 OT- IP IADL's Start: 02/04/19 16:07 Freq: Status: Active Protocol: Document 02/05/19 09:45 [facility] (Rec: 02/05/19 09:55 [facility] [email or web address]) OT-Instrumental Activities of Daily Living Money Management Money Management Comments Pt's daughter to assist initially as pt still having STM memory issues, pt feels from the medications. Meal Preparation Meal Preparation Comments daughter and sister to assist until pt able Picker Machine Operator Picker Machine Operator Comments daughter and sister to assist until pt able Driving Driving Comments daughter and sister to assist until pt able M6 OT- IP Functional Cognition Start: 02/04/19 16:07 Freq: Status: Active Protocol: Document 02/05/19 09:45 [facility] (Rec: 02/05/19 09:55 [facility] [email or web address]) Cognitive Factors Limiting Selfcare Function Cognitive Ability Level of Alertness Alert Patient Orientation Name Age Birthday Month Date Year Day of Week Place Situation Attention Span Ability Capable of Focused Attention Capable of Sustained Attention Ability to Follow Commands Able to Follow One Step Commands Memory Description Short Term Impaired Safety Awareness Decreased Ability to Apply Precautions Underestimates Need for Assistance Cognitive Comments Cognitive Assessment Comments Pt still needing cues to incorporate back precautions especially not to twist. Pt's daughter has good understanding for all needs. M7 OT- IP Mobility and Balance Start: 02/04/19 16:07 Freq: Status: Active Protocol: Document 02/05/19 09:45 [facility] (Rec: 02/05/19 09:55 [facility] [email or web address]) OT- Bed Mobility Assessment Rolling Type of Rolling Roll to Right Supine to Sit Supine to Sit Assist Independent Scooting Scooting to Edge of Bed Independent OT-Transfer Assessment Sit to and From Stand Sit to and from Stand Standby Assistance Transfers Transfer Ability Standby Assistance Technique Transfer Destination Chair Shower Stall Toilet Devices Transfer Assistive Devices 4 Wheeled Walker Comments Mobility Comments vc to lock and unlock brakes of 4WW. OT- Balance Assessment Sitting Balance and Reactions Static Sitting Balance Ability Normal Dynamic Sitting Balance Ability Normal Standing Balance and Reactions Static Standing Balance Ability Good M8 OT- IP Objective Assessments Start: 02/04/19 16:07 Freq: Status: Active Protocol: Document 02/04/19 11:38 PJM (Rec: 02/04/19 16:20 PJM [id number]) OT Gross Range of Motion Upper Extremity Range of Motion Assessment Within Functional Limits OT Strength Upper Extremity Strength Assessment Within Functional Limits Hand Inserting Operator Strength Hand Dominance Right OT- Coordination Assessment Comments Coordination Comments BUE WNL OT-Muscle Tone Assessment Muscle Tone WNL Yes OT Sensation Assessment Comments Summary Comments BUE WNL per pt Edema Edema Absent M9 OT- IP Assessment and Plan Start: 02/04/19 16:07 Freq: Status: Active Protocol: Document 02/05/19 09:45 CCC (Rec: 02/05/19 09:55 CCC [email or web address]) OT Summary Assessment and Plan Potential Rehabilitation Potential Excellent Analytic Complexity at Evaluation Low Summary OT Impairments Pain Functional Cognition Bathing Shower Transfers Progress Towards Goals Progressing Toward Goals Assessment Summary Pt doing much better however still needing cues to slow down and incorporate back precautions. Pt's daughter and sister to stay with pt. Pt to go home today. Discharge Recommendations OT Discharge Recommendations Home with Assistance Home Equipment Needs provided shrink pit operator and sock aid
--- NOTE | 2019-02-05 10:30 | PT.IPTN ---
Current Diagnoses Foot drop, right foot (02/03/19) Spondylolisthesis, lumbar region (02/03/19) Spinal stenosis, lumbar region without neurogenic claudication (02/03/19) Surgery Performed Operation Date: 02/03/19 08:45 Actual Procedures p L3-4 TLIF - Buddy Johns MD Physical Therapy Treatment Note M2 PT-IP Current Condition Start: 02/03/19 17:01 Freq: NEEDED Status: Active Protocol: Document 02/03/19 15:44 AB (Rec: 02/03/19 17:17 AB [id number]) Physical Therapy Current Condition Current Condition Evaluation Date 02/03/19 Treatment Diagnosis L3-4 fusion/lami; difficulty in walking Onset Date 02/03/19 Precautions Lumbar Precautions Log Roll No Twisting Limit Bending Lifting Restriction of 10 lbs Gait Belt above Incisional Area M3 PT-IP Subjective Start: 02/03/19 17:01 Freq: NEEDED Status: Active Protocol: Document 02/05/19 11:30 GGD (Rec: 02/05/19 11:38 GGD [id number]) Subjective Physical Therapy Visit Type Type Treatment Note Visit Start Time 10:00 Visit Stop Time 10:30 Total Visit Minutes 30 Number of CUSTOMS IMPORT SPECIALIST Visits 1 Physical Therapy Visit Comments Patient Comments Pt states she feels ready to go home. Therapy Pain Assessment Pain When Pain Assessed At Rest Pain Present Pain Present Denied Pain M4 PT-IP Mobility and Gait Start: 02/03/19 17:01 Freq: NEEDED Status: Active Protocol: Document 02/05/19 11:30 GGD (Rec: 02/05/19 11:38 GGD [id number]) PT-Bed Mobility Assessment Sit to Supine Sit to Supine Standby Assistance Scooting Scooting to Edge of Bed Standby Assistance Scooting Up and Down in Bed Standby Assistance PT-Transfer Assessment Sit to and From Stand Sit to and from Stand Standby Assistance Equipment Transfer Assistive Device Gait Belt 4 Wheeled Walker Orthotic/Prosthetic Devices or Brace: No Gait Assessment Gait Gait Assistance Required: Standby Assistance Distance (Feet) 500 Able to Maintain Weight Bearing Status Yes During Gait Assistive Devices Assistive Device Gait Belt Front Wheeled Walker Orthotic/Prosthetic Devices or Brace: No Gait Deviations General Gait Pattern Antalgic Factors Limiting Gait Function Factors Limiting Gait Function Decreased Activity Tolerance Decreased Strength Limited Range of Motion Pain Poor Balance Stair Climbing Assessment Evaluation Level of Assist On Stairs Standby Assistance Devices Stair Climbing Assistive Devices None Technique/Endurance Stair Climbing Direction Ascend and Descend Stair Climbing Technique Step to Step Number of Steps Climbed 3 Query Text: Stair Climbing Set # Repetitions (reps) 1 M5 PT-IP Objective Assessments Start: 02/03/19 17:01 Freq: NEEDED Status: Active Protocol: Document 02/03/19 15:44 AB (Rec: 02/03/19 17:17 AB [id number]) Orientation Orientation/Cognition Level of Alertness Alert Orientation Name Age Birthday Month Date Year Day of Week Place Situation Safety Awareness Decreased Safety Awareness Memory Description Short Term Impaired Gross Range of Motion Lower Extremity ROM Assessment Within Functional Limits Strength Lower Extremity Strength Assessment Bilaterally Impaired Hip 4-/5 Knee 4-/5 Coordination Assessment Gross Coordination Gross Coordination WNL Sensation Assessment Sensation Gross Sensation WNL Muscle Tone Muscle Tone WNL Yes M6 PT-IP Treatment Start: 02/03/19 17:01 Freq: NEEDED Status: Active Protocol: Document 02/05/19 11:30 GGD (Rec: 02/05/19 11:38 GGD [id number]) Physical Therapy Treatment Education Education Provided Precautions Safety M7 PT-IP Assessment and Plan Start: 02/03/19 17:01 Freq: NEEDED Status: Active Protocol: Document 02/05/19 11:30 GGD (Rec: 02/05/19 11:38 GGD [id number]) PT Summary Assessment and Plan Summary Assessment Summary Pt improving with mobility. She was safe and stable with gait and stairs. She is safe for home D/C when medically stable. Frequency of Treatment Frequency Of Treatment Twice a Day Treatment Plan Physical Therapy Treatment Plan Bed Mobility Training Transfer Training Gait Training Therapeutic Exercise Balance Retraining Post Op Education Discharge Planning Hot or Cold Pack Neuromuscular Re-ed Coordination Retraining Manual Therapy Recommendations To Nursing Amount of Assist Needed 1 Person Assist Discharge Recommendations PT Discharge Recommendations Home with Assistance
--- NOTE | 2019-02-05 10:40 | PC.NURSE ---
Addendum entered by Ann Rogers R.N. 02/05/19 11:43: DC - reviewed dc instructions with pt and family, script had been given to dtr to take to family pharmacy earlier, belongings gathered and taken to car, include own fww, blanket and pillow, clothing, glasses, cell phone, bags and ying, pt wanted to walk to car and using own fww ambul w/steady gait accompanied by intraoperative neuro tech and her family. Original Note: AM NOTE - pt standby assist w/fww, ambul br, to chair for breakfast, states back discomfort is much better, 4-5 on scale 0/10, given tylenol prior to OT in for shower, then back dsg removed, parallel stapled incisions intact w/o redness or drainage, replaced with coversite dsg, + flatus, + bt, hr 78, ra 97%, discussed constipation and narcotics, given stool softener and had prunes, has addl laxatives at home, script for oxycodone given and remaining medications were submitted to her pharmacy electronically. After shower and prior to dc home, given 15mg po oxycodone.
== END 2019-02-05 11:45 | disposition home or self-care (01) | DRG 454 ==
PROVIDERS: Admitting Provider Orthopaedic Surgery Orthopaedic Surgery of the Spine; PCP Family Medicine; Visit Provider Orthopaedic Surgery Orthopaedic Surgery of the Spine
PROC: 0SG00AJ Fusion of Lumbar Vertebral Joint with Interbody Fusion Device, Posterior Approach, Anterior Column, Open Approach (ICD-10-PCS; principal; 2019-02-03 08:45)
DX: M43.16 Spondylolisthesis, lumbar region (principal); Z68.41 Body mass index [BMI] 40.0-44.9, adult; M48.061 Spinal stenosis, lumbar region without neurogenic claudication; M21.371 Foot drop, right foot; E66.01 Morbid (severe) obesity due to excess calories
CPT/HCPCS: 36415; 72100; 76000; 85014; 85018; 94760; 94762; 97116; 97161; 97165; 97530; 97535; C1776; C9290; J0330; J1100; J1170; J2060; J2250; J2405; J2704; J3010; J3410

== ENCOUNTER 2019-02-06 09:46 | Emergency (ER) | payer OTHER, SELFPAY ==
[2019-02-03 13:17] VITALS: BMI 39.4
[2019-02-06 09:46] VITALS: BP 140/83; PULSE 70; RESP 14; TEMP 36.8; O2SAT 100
--- NOTE | 2019-02-06 10:05 | PC.NURSE ---
Called [facility] Poison control to consult. Medication is anticholinergic: look for flushing tachycardia, dry mouth, urinary retention, midraisis, fever, decreased bowel sounds, somulance, htn, nausea / vomiting. agitation, confusion, hallucination and QRS widening and dysrythmia. Suggests EKG. Symptomatic supportive treatment.
--- NOTE | 2019-02-06 10:17 | DI.RAD.S_ITS ---
PROCEDURE: XR ABDOMEN MIN 2V INDICATIONS: constipation, no BM, had back surgery TECHNIQUE: 2 views of the abdomen were acquired. COMPARISON: None. FINDINGS: Surgical changes and devices: Lumbar spinal instrumentation and skin johnathon.. Bowel: No pneumoperitoneum. The bowel gas pattern is nonobstructive. There is moderate to large amount of diffuse stool seen throughout colon in particular the right colon. There is also stool seen within the rectal vault Soft tissues: No masses; visualized solid organ contours appear normal in size. No suspicious abdominal calcifications. Bones: No suspicious bony abnormalities. IMPRESSION: No evidence of bowel obstruction. Moderate to large amount of stool as above, suggestive of constipation. Dictated by: Roberto Huerta M.D. on 02/06/2019 at 11:13 Approved by: Roberto Huerta M.D. on 02/06/2019 at 11:15
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
--- NOTE | 2019-02-06 11:17 | PC.NURSE ---
attempting iv access x 2, failed attempt, bandage applied.
[2019-02-06] MEDS: HYDROMORPHONE 1 MG INJ IV (11:25)
[2019-02-06] MEDS: SODIUM CHLORIDE 0.9% 1,000 ML 1000 ML IV (11:26)
[2019-02-06 11:35] VITALS: BP 115/77; PULSE 64; RESP 16; O2SAT 97
--- NOTE | 2019-02-06 11:36 | PC.NURSE ---
Patient presents for evaluation of overdose of oxybutin. Patient post op has had bad pain control due to incorrect medication provided when she filled her RX. Patient presents feeling very dry cotton mouth slightly dizzy, significant hip pain. Denies chest pain or SOB. Denies abd pain, has not had a BM.
--- NOTE | 2019-02-06 12:18 | PC.NURSE ---
Extensive conversation with patient regarding narcotic use for pain management. Discussed proper doses. Recommended taking additional stool softeners or laxative to help BM.
[2019-02-06 12:26] VITALS: BP 141/97; PULSE 56; RESP 16; O2SAT 98
[2019-02-06] MEDS: MAGNESIUM CITRATE 300 ML SOLUTION PO (12:26)
== END 2019-02-06 12:28 | disposition home or self-care (01) ==
PROVIDERS: Emergency Provider Emergency Medicine; PCP Family Medicine
DX: T44.3X1A Poisoning by other parasympatholytics [anticholinergics and antimuscarinics] and spasmolytics, accidental (unintentional), initial encounter (principal); R42 Dizziness and giddiness; R11.0 Nausea; K59.00 Constipation, unspecified; Z98.1 Arthrodesis status
CPT/HCPCS: 36591; 74019; 93005; 96361; 96374; 99283; 99284; J1170

== ENCOUNTER → 2019-03-25 12:28 | Outpatient (CLI) | payer OTHER, SELFPAY ==
[2019-02-03 13:17] VITALS: BMI 39.4
[2019-03-25 13:30] LABS: B Type Natriuretic Peptide < 100 (<100)
[2019-03-25 14:52] LABS: BUN Creatinine Ratio 21.4 (6-22); Blood Urea Nitrogen 15 mg/dL (7-17); Carbon Dioxide 27 mmol/L (22-32); Chloride 103 mmol/L (98-107); Estimated Glomerular Filt Rate > 60.0 mL/min (>60); Glucose 83 mg/dL (70-100); HEMOLYSIS < 15 (0-50); Potassium 4.5 mmol/L (3.4-5.1); Sodium 140 mmol/L (137-145)
== END ==
PROVIDERS: PCP Family Medicine; Visit Provider Hospitalist
DX: R60.9 Edema, unspecified (principal)
CPT/HCPCS: 36415; 80048; 83880

== ENCOUNTER → 2019-08-20 18:43 | Outpatient (CLI) | payer OTHER, SELFPAY ==
[2019-02-03 13:17] VITALS: BMI 39.4
--- NOTE | 2019-08-20 18:46 | DI.MRI.S_ITS ---
PROCEDURE: MR KNEE RT WO CON INDICATIONS: Right knee pain TECHNIQUE: Noncontrast sagittal PD fast spin echo and T2 fast spin echo with fat saturation, sagittal 3-D FLASH with fat saturation; coronal T1 spin echo and PD fast spin echo with fat saturation, and axial PD fast spin echo with fat saturation through the knee. COMPARISON: [facility], MR, KNEE WITHOUT CONTRAST, 05/31/2014, 20:44. FINDINGS: Image quality: Diagnostic. Menisci: There is moderate irregular degenerative tearing of the medial meniscus primarily involving the body and extending into the anterior and posterior horns. There is slight peripheral extrusion of the medial meniscus. The lateral meniscus and meniscal root ligament appear intact. Cruciate ligaments: The anterior and posterior cruciate ligaments appear intact. Medial structures: The medial collateral ligament demonstrates T2 hyperintensity between the superficial and deep fibers suggestive of a mild sprain or partial tearing. The semimembranosus tendon insertions and meniscocapsular junction appear intact. Visualized portions of the pes anserinus tendons appear intact without associated bursal fluid collections. Lateral structures: The lateral collateral ligament, long and short heads of the biceps femoris tendon appear intact. The popliteus tendon appears intact. Iliotibial band appears normal. Anterior structures: The quadriceps and patellar tendons appear intact. There is mild tendinopathy in the distal patellar tendon as well as the distal quadriceps tendon. Patellar alignment is preserved. No femoral trochlear dysplasia or ventral trochlear prominence. There is mild edema within the medial suprapatellar fat as well as mild edema at the medial retinaculum along its patellar insertion. There is mild prepatellar subcutaneous edema medially. Bones and cartilage: No bone marrow contusions or fractures. There is tricompartmental osteophytosis. Moderate to severe cartilage thinning is demonstrated in the medial compartment with areas of apparent full-thickness cartilage loss associated with subchondral edema and sclerosis. In the lateral compartment, there is mild cartilage thinning with superficial chondral fraying. In the patellofemoral compartment, there is moderate thinning with underfilling associated with small foci of subchondral edema. Joint space: There is a small joint effusion. No Irizarry's cyst. Normal appearing synovial plicae are incidentally noted. IMPRESSION: 1. Moderate irregular degenerative tearing of the medial meniscus primarily involving the body with mild peripheral extrusion. Findings upper breast compared to the prior study. 2. Tricompartmental osteoarthritic changes most prominent within the medial compartment where there is moderate to severe cartilage thinning with areas of apparent full-thickness cartilage loss. Findings have also progressed compared to the prior study. 3. Mild edema along the patellar insertion of the medial retinaculum suggesting partial tearing. Mild edema in the medial suprapatellar fat is nonspecific but likely represents associated reactive changes. Recommend correlation with clinical history. The 4. Fluid signal tracking within the medial collateral ligament compatible with sequelae of a mild sprain or partial tear. The finding is new from the prior study. Dictated by: Perico Rosa M.D. on 08/23/2019 at 12:06 Approved by: Perico Rosa M.D. on 08/23/2019 at 12:32
== END ==
PROVIDERS: PCP Family Medicine; Visit Provider Family Medicine
DX: M25.561 Pain in right knee (principal); M23.231 Derangement of other medial meniscus due to old tear or injury, right knee; R60.0 Localized edema
CPT/HCPCS: 73721

== ENCOUNTER → 2019-11-13 13:21 | Outpatient (CLI) | payer OTHER, SELFPAY ==
[2019-02-03 13:17] VITALS: BMI 39.4
--- NOTE | 2019-11-13 | DI.MG.S_ITS ---
BILATERAL DIGITAL SCREENING MAMMOGRAM 3D/2D WITH CAD: 11/13/2019 CLINICAL: Routine screening. Comparison is made to exams dated: 03/09/2015 mammogram, 07/08/2002 mammogram, and 12/10/1988 mammogram - [facility]. There are scattered fibroglandular elements in both breasts. Current study was also evaluated with a Computer Aided Detection (CAD) system. No significant masses, calcifications, or other findings are seen in either breast. There has been no significant interval change. IMPRESSION: NEGATIVE There is no mammographic evidence of malignancy. A 1 year screening mammogram is recommended. This exam was interpreted at Station ID: [id number]. NOTE: For mammograms, a report in lay terms will be sent to the patient. Approximately 15% of breast malignancies will not be visualized mammographically. In the management of a palpable breast mass, a negative mammogram must not discourage biopsy of a clinically suspicious lesion. Electronically Signed By: Jose L lynne/sina:11/15/2019 08:53:04 letter sent: Normal Exam ACR BI-RADS Category 1: Negative [id number]
== END ==
PROVIDERS: PCP Family Medicine; Visit Provider Family Medicine
DX: Z12.31 Encounter for screening mammogram for malignant neoplasm of breast (principal)
CPT/HCPCS: 77063; 77067

== ENCOUNTER 2020-01-19 15:14 | Emergency (ER) | payer OTHER, SELFPAY ==
[2019-02-03 13:17] VITALS: BMI 39.4
[2020-01-19 15:29] VITALS: BP 143/77; PULSE 69; RESP 18; TEMP 36.7; O2SAT 100; BMI 34.4
--- NOTE | 2020-01-19 15:33 | DI.RAD.S_ITS ---
PROCEDURE: XR CHEST 1V INDICATIONS: sob, asthma TECHNIQUE: One view of the chest was acquired. COMPARISON: [facility], , CHEST 2 VIEW, 09/10/2016, 12:19. FINDINGS: Surgical changes and devices: Partially visualized cervical fixation plate is noted. Lungs and pleura: Lungs are clear. No pleural effusions or pneumothorax. Mediastinum: Mediastinal contours appear normal. Heart size is mildly prominent. Bones and chest wall: No suspicious bony lesions. Overlying soft tissues appear unremarkable. Multiple old left-sided rib fractures are noted. IMPRESSION: No acute pulmonary process. Dictated by: Juana Huffman M.D. on 01/19/2020 at 14:51 Approved by: Juana Huffman M.D. on 01/19/2020 at 14:55
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
[2020-01-19 15:46] LABS: Add Manual Diff / Slide Review NO; Basophils Absolute Auto 100 /uL (0-100); Eosinophils Absolute Auto 200 /uL (0-450); Eosinophils Percent Auto 1.9 % (2-4); Hemoglobin 13.8 g/dL (12.0-16.0); Lymphocytes Absolute Auto 2100 /uL (1100-4500); Lymphocytes Percent Auto 24.8 % (25-40); Mean Corpuscular HGB Conc 33.8 % (30-36); Mean Corpuscular Hemoglobin 32.9 PG (26-34); Mean Corpuscular Volume 97.4 fL (80-100); Monocytes Absolute Auto 800 /uL (0-900); Monocytes Percent Auto 9.3 % (3-14); Neutrophils Absolute Auto 5400 /uL (1500-7000); Platelet Count 318 X10^3/uL (150-400); Red Blood Cell Count 4.21 X10^6/uL (4.0-5.2); White Blood Cell Count 8.5 X10^3/uL (4.5-11.0)
[2020-01-19 15:57] LABS: D Dimer < 200 ng/mL (<230)
[2020-01-19 15:58] LABS: Alanine Aminotransferase 30 IU/L (<35); Albumin 4.9 g/dL (3.5-5.0); Albumin Globulin Ratio 1.4 (1.0-2.8); Alkaline Phosphatase 92 U/L (38-126); Aspartate Aminotransferase 30 IU/L (14-36); BUN Creatinine Ratio 27.3 (6-22); Bilirubin Total 0.6 mg/dL (0.2-1.3); Blood Urea Nitrogen 18 mg/dL (7-17); Calcium 9.8 mg/dL (8.4-10.2); Carbon Dioxide 28 mmol/L (22-32); Chloride 103 mmol/L (98-107); Creatine Kinase 88 U/L (30-135); Estimated Glomerular Filt Rate > 60.0 mL/min (>60); Globulin 3.4 g/dL (1.7-4.1); Glucose 96 mg/dL (70-100); HEMOLYSIS < 15 (0-50); Potassium 3.8 mmol/L (3.4-5.1); Sodium 140 mmol/L (137-145); Total Protein 8.3 g/dL (6.3-8.2)
[2020-01-19 16:04] LABS: INR 1.2 (0.9-1.3); Prothrombin Time 13.8 SECONDS (10.1-12.7)
[2020-01-19 16:07] LABS: PTT Partial Thromboplastin Tim 31 SECONDS (26.4-36.2)
[2020-01-19 16:09] LABS: Troponin I < 0.012 ng/mL (0.01-0.034)
[2020-01-19 16:58] LABS: Adenovirus Not Detected (Not Detect); Coronavirus 229E Not Detected (Not Detect); Coronavirus HKU1 Not Detected (Not Detect); Coronavirus NL 63 Not Detected (Not Detect); Coronavirus OC43 Not Detected (Not Detect); Human Metapneumovirus Detected (Not Detect)
[2020-01-19 16:59] LABS: Bordetella pertussis Not Detected (Not Detect); Chlamydophila pneumoniae Not Detected (Not Detect); Human Rhinovirus/Enterovirus Not Detected (Not Detect); Influenza A Not Detected (Not Detect); Influenza B Not Detected (Not Detect); Mycoplasma pneumoniae Not Detected (Not Detect); Parainfluenza Virus 1 Not Detected (Not Detect); Parainfluenza Virus 2 Not Detected (Not Detect); Parainfluenza Virus 3 Not Detected (Not Detect); Parainfluenza Virus 4 Not Detected (Not Detect); Respiratory Syncytial Virus Not Detected (Not Detect)
[2020-01-19 17:00] VITALS: RESP 16; O2SAT 99
[2020-01-19] MEDS: KETOROLAC 60 MG/2 ML VIAL 30 MG IV (18:24)
[2020-01-19 18:44] LABS: Creatine Kinase 81 U/L (30-135)
[2020-01-19 18:57] LABS: Troponin I < 0.012 ng/mL (0.01-0.034)
[2020-01-19 19:47] VITALS: BP 135/74; PULSE 69; RESP 18; O2SAT 99
[2020-01-19 21:02] LABS: NT-proBNP (BNP-Adult 18+) 89 pg/mL (<125)
[2020-01-26 04:22] LABS: COVID19 Sendout Not Detected (Not Detected)
== END 2020-01-19 19:41 | disposition home or self-care (01) ==
PROVIDERS: Emergency Provider Nurse Practitioner Family; PCP Family Medicine
DX: J06.9 Acute upper respiratory infection, unspecified (principal); B97.81 Human metapneumovirus as the cause of diseases classified elsewhere; R06.02 Shortness of breath
CPT/HCPCS: 36415; 71045; 80053; 82550; 83735; 83880; 84484; 85025; 85379; 85610; 85730; 87633; 87635; 93005; 96374; 99283; 99284; J1885

== ENCOUNTER → 2020-03-29 10:56 | Outpatient (CLI) | payer OTHER, SELFPAY ==
[2019-02-03 13:17] VITALS: BMI 39.4
--- NOTE | 2020-03-29 | DI.CT.S_ITS ---
PROCEDURE: CT CERVICAL SPINE WO CON INDICATIONS: Spinal stenosis, cervical region TECHNIQUE: Noncontrast 3 mm thick sections acquired from the skull base to the T4 level. Sagittal and coronal reformats were then constructed. For radiation dose reduction, the following was used: automated exposure control, adjustment of mA and/or kV according to patient size. COMPARISON: [facility] [place], CR, XR CERVICAL SPINE 2 OR 3 VIEWS, 11/19/2017, 8:41. MR, MR CERVICAL SPINE WO CON, 11/28/2016, 11:16. [facility] [place], CR, XR CERVICAL SPINE 2 OR 3 VIEWS, 03/06/2020, 10:39. FINDINGS: Image quality: Excellent. Bones: Postsurgical changes compatible with C5-C7 ACDF. Orthopedic hardware is intact. The C5-C6 and C6-C7 intervertebral disc spaces persist. Mild C2-C3, C3-C4, C4-C5-C7-T1 degenerative changes. Mild bilateral C2-C3, C3-C4, C4-C5 and C7-T1 facet hypertrophy. Mild left C5-C6 and C6-C7 uncovertebral joint hypertrophy. Mild right C6-C7 uncovertebral joint hypertrophy. Mild right C6-C7 neural foraminal narrowing. Moderate left C5-C6 and C6-C7 neural foraminal narrowing. No central stenosis. No fractures or dislocations. Visualized superior ribs are intact. Soft tissues: Prevertebral soft tissues are normal in thickness. No paravertebral hematomas. No apical pneumothoraces. IMPRESSION: 1. Status post C5-C7 ACDF. 2. Mild multilevel degenerative disease. 3. Mild multilevel facet arthropathy. 4. No central stenosis. 5. Mild right and moderate left C6-C7 neural foraminal narrowing. Moderate right C5-C6 neural foraminal narrowing. 6. No definite neural compression. 7. No acute osseous lesion. If symptoms and/or clinical suspicion for pathology persists, evaluation with MRI may be helpful for further assessment. Dictated by: Janina Blanco MD, PhD on 03/29/2020 at 17:02 Approved by: Janina Blanco MD, PhD on 03/29/2020 at 17:08
== END ==
PROVIDERS: PCP Family Medicine; Referring Provider Orthopaedic Surgery Orthopaedic Surgery of the Spine; Visit Provider Orthopaedic Surgery Orthopaedic Surgery of the Spine
DX: M48.02 Spinal stenosis, cervical region (principal); M50.31 Other cervical disc degeneration, high cervical region; M47.812 Spondylosis without myelopathy or radiculopathy, cervical region; Z98.1 Arthrodesis status
CPT/HCPCS: 72125

== ENCOUNTER → 2020-04-21 12:28 | Outpatient (CLI) | payer OTHER, SELFPAY ==
[2019-02-03 13:17] VITALS: BMI 39.4
[2020-04-21 15:19] LABS: Blood Urea Nitrogen 21 mg/dL (7-17); Calcium 9.8 mg/dL (8.4-10.2); Carbon Dioxide 26 mmol/L (22-32); Chloride 103 mmol/L (98-107); Estimated Glomerular Filt Rate > 60.0 mL/min (>60); Glucose 88 mg/dL (70-100); HEMOLYSIS < 15 (0-50); Potassium 4.3 mmol/L (3.4-5.1); Sodium 138 mmol/L (137-145)
== END ==
PROVIDERS: PCP Family Medicine; Referring Provider Family Medicine; Visit Provider Family Medicine
DX: E66.9 Obesity, unspecified (principal)
CPT/HCPCS: 36415; 80048

== ENCOUNTER → 2020-06-16 14:33 | Outpatient (CLI) | payer OTHER, SELFPAY ==
[2019-02-03 13:17] VITALS: BMI 39.4
--- NOTE | 2020-06-16 14:36 | DI.RAD.S_ITS ---
PROCEDURE: XR SHOULDER RT MIN 2V INDICATIONS: r shoulder pain TECHNIQUE: 3 views of the shoulder were acquired. COMPARISON: None. FINDINGS: Bones: No fractures or dislocations. No suspicious bony lesions. Visualized ribs appear intact. Calcific tendinitis Soft tissues: No suspicious soft tissue calcifications. IMPRESSION: Calcific tendinitis Dictated by: Roberto Huerta M.D. on 06/16/2020 at 14:56 Approved by: Roberto Huerta M.D. on 06/16/2020 at 15:10
== END ==
PROVIDERS: PCP Family Medicine; Referring Provider Family Medicine; Visit Provider Physician Assistant
DX: M25.511 Pain in right shoulder (principal); M75.31 Calcific tendinitis of right shoulder
CPT/HCPCS: 73030

== ENCOUNTER 2021-03-01 14:47 | Emergency (ER) | payer OTHER, SELFPAY ==
[2019-02-03 13:17] VITALS: BMI 39.4
[2021-03-01 14:54] VITALS: BP 165/83; PULSE 74; RESP 15; TEMP 36.7; O2SAT 96; BMI 38.0
--- NOTE | 2021-03-01 14:57 | DI.RAD.S_ITS ---
PROCEDURE: XR SHOULDER RT MIN 2V INDICATIONS: shoulder pain TECHNIQUE: To views of the shoulder were acquired. COMPARISON: [facility], [facility], XR SHOULDER RT MIN 2V, 06/16/2020, 13:36. FINDINGS: Bones: No fractures or dislocations. No suspicious bony lesions. Visualized ribs appear intact. Cervical spine fixation hardware. Soft tissues: Calcifications adjacent to the lateral margin of the right humeral head compatible with rotator cuff calcific tendinitis. IMPRESSION: Right rotator cuff calcific tendinitis. Dictated by: Janina Blanco MD, PhD on 03/01/2021 at 15:07 Approved by: Janina Blanco MD, PhD on 03/01/2021 at 15:07
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
[2021-03-01] MEDS: KETOROLAC 30 MG/ML VIAL IM (16:30)
[2021-03-01 16:58] VITALS: BP 141/85; PULSE 60; RESP 19; O2SAT 98
== END 2021-03-01 17:00 | disposition home or self-care (01) ==
PROVIDERS: Emergency Provider Emergency Medicine; PCP Family Medicine
DX: M25.511 Pain in right shoulder (principal)
CPT/HCPCS: 73030; 96372; 99283; J1885

== ENCOUNTER → 2021-03-21 09:23 | Outpatient (CLI) | payer OTHER, SELFPAY ==
[2019-02-03 13:17] VITALS: BMI 39.4
[2021-03-21 11:03] LABS: BUN Creatinine Ratio 36.4 (6-22); Blood Urea Nitrogen 24 mg/dL (7-17); Calcium 9.8 mg/dL (8.4-10.2); Carbon Dioxide 29 mmol/L (22-32); Chloride 105 mmol/L (98-107); Estimated Glomerular Filt Rate > 60.0 mL/min (>60); Glucose 94 mg/dL (70-100); Sodium 140 mmol/L (137-145)
[2021-03-21 11:04] LABS: HEMOLYSIS 73 (0-50)
[2021-03-21 11:05] LABS: Potassium 4.8 mmol/L (3.4-5.1)
[2021-03-21 11:13] LABS: Free T3, Triiodothyronine Free 3.53 pg/mL (2.77-5.27); Free T4, Direct Thyroxine 1.02 ng/dL (0.78-2.19)
== END ==
PROVIDERS: PCP Family Medicine; Referring Provider Family Medicine; Visit Provider Family Medicine
DX: E66.9 Obesity, unspecified (principal); Z51.81 Encounter for therapeutic drug level monitoring; Z79.1 Long term (current) use of non-steroidal anti-inflammatories (NSAID)
CPT/HCPCS: 36415; 80048; 84439; 84443; 84481

== ENCOUNTER → 2021-06-04 14:48 | Outpatient (CLI) | payer OTHER, SELFPAY ==
[2019-02-03 13:17] VITALS: BMI 39.4
--- NOTE | 2021-06-04 15:06 | DI.RAD.S_ITS ---
PROCEDURE: XR KNEE LT 3V INDICATIONS: LFT KNEE PAIN TECHNIQUE: 3 views of the knee were acquired. COMPARISON: [facility], , KNEE 3V RIGHT, 05/24/2014, 17:09. FINDINGS: Bones: No fractures or dislocations. No suspicious bony lesions. Mild narrowing of the medial femorotibial joint and tricompartmental periarticular osteophyte formation. Soft tissues: No joint effusion. No suspicious soft tissue calcifications. 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 Dictated by: Sidney Kay [facility] Interpreted: Tra Newberry MD on 06/04/2021 at 15:21 Transcribed by: CRIS on 06/04/2021 at 15:21 Approved by: Tra Newberry M.D. on 06/04/2021 at 15:42
== END ==
PROVIDERS: PCP Family Medicine; Referring Provider Physician Assistant; Visit Provider Family Medicine
DX: M25.562 Pain in left knee (principal); M17.12 Unilateral primary osteoarthritis, left knee
CPT/HCPCS: 73562

== ENCOUNTER 2021-09-25 06:14 | Emergency (ER) | payer OTHER, SELFPAY ==
[2019-02-03 13:17] VITALS: BMI 39.4
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
[2021-09-25 06:27] VITALS: BP 159/91; PULSE 71; RESP 17; TEMP 37.3; O2SAT 99; BMI 39.4
--- NOTE | 2021-09-25 06:42 | DI.CT.S_ITS ---
PROCEDURE: CT UE RT W CON INDICATIONS: pain, ? new bleeding. Surgery 09/14/21 TECHNIQUE: After the administration of intravenous contrast, 1 mm axial sections acquired of the right shoulder, with coronal and sagittal reformats. COMPARISON: [facility] [place], MR, MR SHOULDER RIGHT WITHOUT CONTRAST, 09/06/2020, 11:09. [facility] [place], CR, XR SHOULDER 2+ VIEWS RIGHT, 06/13/2021, 10:36. FINDINGS: Image quality: Excellent. Bones: There is suggestion of possible osteotomy changes involving distal clavicle near acromioclavicular joint versus a slightly displaced fracture. There is up to 5 millimeter diastasis at the site of fracture/osteotomy. Clinical correlation is recommended. No other fracture or dislocation is seen. Mild osteoarthritic changes are seen in glenohumeral joint. Mild osteoarthritic changes also seen at acromioclavicular joint. No suspicious intraosseous lesion. Visualized right upper ribs are intact. Postfusion changes are noted in visualized portion of lower cervical spine. No gross acute compression fracture is seen in visualized cervical and thoracic spine. Soft tissues: There is no evidence of full-thickness rotator cuff tendon rupture. No significant muscle atrophy. Subtle increased density within supraspinatus muscle is noted, which may represent mild intramuscular hematoma. No discrete drainable intramuscular fluid collection is identified. No significant joint effusion or intra-articular loose body is seen. No abnormal soft tissue calcifications. IMPRESSION: 1. Likely post osteotomy changes versus minimally displaced fracture involving right distal clavicle suggest clinical correlation. Mild AC joint and glenohumeral joint osteoarthritis. No other fracture or dislocation. No suspicious bony lesion. 2. No full-thickness rotator cuff tendon rupture. No significant muscle atrophy. Subtle ill-defined hyperdensity within supraspinatus muscle which may represent mild intramuscular hemorrhage. No discrete drainable intramuscular or soft tissue fluid collection is seen. 3. No significant shoulder joint effusion. No abnormal soft tissue calcifications. Dictated by: Len Hernandez M.D. on 09/25/2021 at 8:57 Approved by: Len Hernandez M.D. on 09/25/2021 at 9:06
[2021-09-25] MEDS: HYDROMORPHONE 1 MG INJ IV (06:56)
[2021-09-25 07:58] LABS: Add Manual Diff / Slide Review NO; Basophils Absolute Auto 100 /uL (0-100); Basophils Percent Auto 1.1 % (0-2); Eosinophils Absolute Auto 200 /uL (0-450); Eosinophils Percent Auto 2.9 % (2-4); Hematocrit 37.7 % (36-46); Hemoglobin 12.6 g/dL (12.0-16.0); Lymphocytes Absolute Auto 2300 /uL (1100-4500); Lymphocytes Percent Auto 32.5 % (25-40); Mean Corpuscular HGB Conc 33.5 % (30-36); Mean Corpuscular Hemoglobin 31.4 PG (26-34); Mean Corpuscular Volume 93.6 fL (80-100); Monocytes Absolute Auto 600 /uL (0-900); Monocytes Percent Auto 8.6 % (3-14); Neutrophils Absolute Auto 4000 /uL (1500-7000); Neutrophils Percent Auto 54.9 % (50-75); Platelet Count 345 X10^3/uL (150-400); Red Blood Cell Count 4.03 X10^6/uL (4.0-5.2); Red Cell Distribution Width 13.3 % (11.6-14.8); White Blood Cell Count 7.2 X10^3/uL (4.5-11.0)
[2021-09-25 08:12] LABS: Alanine Aminotransferase 29 IU/L (<35); Albumin 4.5 g/dL (3.5-5.0); Albumin Globulin Ratio 1.6 (1.0-2.8); Alkaline Phosphatase 86 U/L (38-126); Aspartate Aminotransferase 26 IU/L (14-36); BUN Creatinine Ratio 25.4 (6-22); Bilirubin Total 0.4 mg/dL (0.2-1.3); Blood Urea Nitrogen 16 mg/dL (7-17); Calcium 9.5 mg/dL (8.4-10.2); Carbon Dioxide 26 mmol/L (22-32); Chloride 103 mmol/L (98-107); Estimated Glomerular Filt Rate > 60.0 mL/min (>60); Globulin 2.9 g/dL (1.7-4.1); Glucose 109 mg/dL (70-100); HEMOLYSIS < 15 (0-50); Potassium 4.2 mmol/L (3.4-5.1); Sodium 138 mmol/L (137-145); Total Protein 7.4 g/dL (6.3-8.2)
[2021-09-25] MEDS: HYDROMORPHONE 0.5 MG INJ IV (09:24)
[2021-09-25 11:27] VITALS: BP 134/68; PULSE 62; O2SAT 95
== END 2021-09-25 11:31 | disposition home or self-care (01) ==
PROVIDERS: Emergency Medicine; Emergency Provider Emergency Medicine; PCP Family Medicine
DX: G89.18 Other acute postprocedural pain (principal); M25.511 Pain in right shoulder; Y99.0 Civilian activity done for income or pay; Z98.890 Other specified postprocedural states; R61 Generalized hyperhidrosis
CPT/HCPCS: 36415; 73201; 80053; 85025; 96374; 96376; 99284; J1170; Q9967

== ENCOUNTER → 2021-12-19 10:34 | Outpatient (CLI) | payer OTHER, SELFPAY ==
[2019-02-03 13:17] VITALS: BMI 39.4
[2021-12-19 14:14] LABS: COVID19 -Nasal RAPID Negative (Negative)
== END ==
PROVIDERS: Family Provider Family Medicine; PCP Family Medicine; Visit Provider Family Medicine Sleep Medicine
DX: Z20.822 Contact with and (suspected) exposure to COVID-19 (principal)
CPT/HCPCS: 87635; C9803

== ENCOUNTER 2021-12-20 11:44 | Day surgery (SDC) | payer OTHER, SELFPAY ==
[2019-02-03 13:17] VITALS: BMI 39.4
[2021-12-20] VITALS (9 sets, daily range): BP systolic 118–144; BP diastolic 70–83; PULSE 73–89; RESP 14–16; TEMP 36.3–37; O2SAT 92–95; BMI 40.1
--- NOTE | 2021-12-20 | DI.RAD.S_ITS ---
PROCEDURE: XR CHEST 1V INDICATIONS: Status post distal claviculectomy with an interscalene block. TECHNIQUE: One view of the chest was acquired. COMPARISON: [facility], CR, XR CHEST 1V, 01/19/2020, 15:35. FINDINGS: Surgical changes and devices: Cervical spine fixation hardware. Lungs and pleura: Patchy opacities in the lung bases bilaterally. No pleural effusions or pneumothorax. Mediastinum: Mediastinal contours appear normal. Heart size is normal. Bones and chest wall: No suspicious bony lesions. Overlying soft tissues appear unremarkable. IMPRESSION: Bibasilar patchy airspace opacities, right greater than left which could represent atelectasis, aspiration or pneumonia. Dictated by: Janina Blanco MD, PhD on 12/20/2021 at 16:49 Approved by: Janina Blanco MD, PhD on 12/20/2021 at 16:50
[2021-12-20] MEDS: LACTATED RINGERS 1,000 ML 42 ML IV (12:27)
--- NOTE | 2021-12-20 12:45 | PM.PREOP ---
Pre-operative Note COVID-19 COVID-19 status: Negative Criteria for continued procedure: Expected advancement of disease process, Possibility delay results in more complex future surgery or treatment, Increased loss of function and Continuing or worsening of significant or severe pain Interval Note History & Physical reviewed/Exam performed by Physician: Yes Changes to H&P: No
[2021-12-20] MEDS: CEFAZOLIN 2 GM/20 ML SYRINGE IV (13:51)
--- NOTE | 2021-12-20 14:11 | SUR.OPER ---
Beach chair with Schlein shoulder positioner. Lower body on padded OR bed. Head in foam padded head cradle, secured with straps. Non-operative arm secured <90 degrees abduction. Pillow under knees. Safety belt at thigh. Cloth tape over blanket over lower legs.
[2021-12-20] MEDS: BUPIVACAINE 0.25% W/ EPI 30 ML VIAL INJ (14:20)
[2021-12-20] MEDS: BUPIVACAINE LIPOSOME 266 MG/20 ML VIAL INJ (14:21)
--- NOTE | 2021-12-20 15:37 | P.OP_ITS ---
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 She has a history of a partial resection of her distal clavicle and subacromial decompression arthroscopically. She noted persistent pain and failed to progress with therapy is brought the operating room for open resection of her distal clavicle. Surgeon: Isabel Danielle Click Yes if Unassisted: Yes Anesthesia Type: General Operative Notes Findings: Moderate a right shoulder distal clavicle spur. Moderate AC osteoarthritic change, some subacromial bursitis noted deep in the wound without evidence of a rotator cuff tear, moderate adhesions with manipulation under anesthesia. Closure Type: primary Specimen(s): none sent Estimated Blood Loss (mL): 50 Blood products transfused: none Procedure in detail: Patient is brought the operating room she underwent induction of a general an esthesia. She was positioned in a beach chair position. Her right shoulder was meticulously examined. She did have slight prominence of the it residual AC joint her external rotation was about 30? there was clear evidence of adhesions when externally rotating her from 30? to 60?. She was internally and externally rotated to regain full motion and then actively forward flexed it there was some moderate adhesions between 160? and 180?. Full range of motion was achieved. Next she was sat up into a beach chair position and prepped and draped in the standard sterile fashion. Antibiotics were administered. A incision was made over the AC joint. dissection was carried out through skin and subcutaneous tissues. Gelpi retractors were placed. Several Senns were used to retract and the capsule over the distal clavicle was incised. Dissection was carried out down to the AC joint area. She had had prior discussed partial distal clavicle excision before. There was an area where a portion of the clavicle had been resected that tract was found as well as the AC joint. There was a distal fragment of clavicle which was noted to be unstable with the a moderate bony spur. It was meticulously resected. It was about a 1 cm of residual distal clavicle. The wound was meticulously irrigated with normal saline. I gently place the shoulders were range of motion there was no evidence of impingement across the acromion and the residual distal clavicle. There was good quality decompression. I had placed longitudinal traction on the shoulder and checked the subacromial space there was some moderate residual adhesions and thickened bursal tissue in the several carefully resected. The rotator cuff that was visualized was noted to be intact. Marcaine and Exparel were injected into the capsule as well as into the AC joint and subacromial space. The wound was closed with interrupted Vicryl and and Monocryl and surgical glue. Sterile dressing was applied and she was placed in a sling. Complications: none Post-operative Condition: stable Disposition: Acute Care Plan for aftercare: Use sling as needed for pain for the 1st 24 hours. Begin physical therapy. She did have moderate adhesions and some evidence of an adhesive capsulitis. Think she needs to work through an early range of motion program especially working on shoulder external rotation.
[2021-12-20] MEDS: ALBUTEROL/IPRATROPIUM 3 ML AMPUL INH (15:40)
--- NOTE | 2021-12-20 15:48 | SUR.PREOP ---
Block start time [1303] . Time out proformed Monitoring initiated and maintained throughout procedure. Oxygen and medications given by anesthesiologist. Patient remained stable throughout procedure, no adverse reactions noted. Block end time [1319]. Pt to OR in stable condition.
--- NOTE | 2021-12-20 16:38 | SUR.PHASEII ---
@ 1610 Pt. transferred to phase two with cont. pulse ox monitoring. Dr. shen notified of pt. cont. to have lower than nornal sats and has some crackles heard in the right lung. will obtain CXR stat . will cont.. to phuc monitor.
--- NOTE | 2021-12-20 18:27 | SUR.PHASEII ---
Pt had been initially placed on 2/l and cont. pulse ox, 02 gradually weaned off. 1800, Dr Mckeon spoke with pt at bedside, ok to go home, pt agreeable sats remained 90-92 on room air. Pt dressed and left in stable condition.
== END 2021-12-20 18:15 | disposition home or self-care (01) ==
PROVIDERS: Family Provider Family Medicine; PCP Family Medicine; Referring Provider Orthopaedic Surgery; Visit Provider Orthopaedic Surgery
PROC: (CPT 23120; principal; 2021-12-20 13:15)
DX: S43.51XA Sprain of right acromioclavicular joint, initial encounter (principal); M75.51 Bursitis of right shoulder; M77.8 Other enthesopathies, not elsewhere classified
CPT/HCPCS: 23120; 64450; 71045; C9290; J0690; J1100; J2250; J2405; J2704; J3010

== ENCOUNTER → 2021-12-28 11:37 | Outpatient (CLI) | payer OTHER, SELFPAY ==
[2019-02-03 13:17] VITALS: BMI 39.4
--- NOTE | 2021-12-28 11:39 | DI.RAD.S_ITS ---
PROCEDURE: XR CLAVICLE RT INDICATIONS: lump in neck TECHNIQUE: 2 views of the clavicle were acquired. COMPARISON: [facility], CR, XR CERVICAL SPINE 2V OR 3V, 12/28/2021, 11:30. [facility] [place] MR, MR SHOULDER RIGHT WITHOUT CONTRAST, 11/20/2021, 10:30. [facility] [place], CR, XR SHOULDER 2+ VIEWS RIGHT, 10/17/2021, 14:14. [facility], CR, XR SHOULDER RT MIN 2V, 03/01/2021, 14:55. [facility], CR, XR CHEST 1V, 01/19/2020, 15:35. [facility], CR, XR CHEST 1V, 12/20/2021, 16:29. FINDINGS: Bones: Prior surgical resection of distal clavicle. Lower cervical spine fusion. No fractures or dislocations. No suspicious bony lesions. Soft tissues: No suspicious soft tissue calcifications. IMPRESSION: 1. No acute osseous abnormalities. 2. Postsurgical changes related to prior surgical resection of the distal clavicle. Dictated by: Dulce Maria Gauthier M.D. on 12/28/2021 at 17:48 Approved by: Dulce Maria Gauthier M.D. on 12/28/2021 at 17:50
--- NOTE | 2021-12-28 11:39 | DI.RAD.S_ITS ---
PROCEDURE: XR CERVICAL SPINE 2V OR 3V INDICATIONS: lump in neck TECHNIQUE: 3 view(s) of the cervical spine were acquired. COMPARISON: CT, CT CERVICAL SPINE WO CON, 03/29/2020, 11:36. FINDINGS: Bones: C5-C7 ACDF. Minimal degenerative change. No fractures or dislocations to the C7 level. The lateral masses of C1 appear intact on the odontoid view. No suspicious bony lesions. Soft tissues: No prevertebral soft tissue swelling. IMPRESSION: Stable appearance of C5-C7 ACDF. Consider further evaluation with CT or MRI to evaluate the lump in the neck. Dictated by: Vish Alatorre M.D. on 12/28/2021 at 15:18 Approved by: Vish Alatorre M.D. on 12/28/2021 at 15:22
== END ==
PROVIDERS: Family Provider Family Medicine; PCP Family Medicine; Referring Provider Family Medicine; Visit Provider Family Medicine
DX: R22.1 Localized swelling, mass and lump, neck (principal); Z98.1 Arthrodesis status
CPT/HCPCS: 72040; 73000

== ENCOUNTER → 2022-01-29 14:29 | Outpatient (CLI) | payer OTHER, SELFPAY ==
[2019-02-03 13:17] VITALS: BMI 39.4
--- NOTE | 2022-01-29 14:32 | DI.CT.S_ITS ---
PROCEDURE: CT SOFT TISSUE NECK WO CON INDICATIONS: lump on clavicle TECHNIQUE: Non-contrast 3.0 mm axial sections acquired from the sella to the aortic arch. Additional oblique axial 3.0 mm sections acquired through the pharynx. 3 mm thick coronal and sagittal reformats were generated. For radiation dose reduction, the following was used: automated exposure control. COMPARISON: None. FINDINGS: Image quality: Excellent. Lymph nodes: No enlarged lymph nodes seen throughout the neck. Prominent bilateral level 1, level 2 and level 3 neck lymph nodes are noted which do not meet pathologic size criteria. Vessels: Non-opacified vessels appear normal in caliber. Neck spaces: The oropharynx, nasopharynx, and pharynx demonstrate no mucosal lesions. The vocal cords, false vocal cords, pyriform sinuses, epiglottis, vallecula, and tongue base all appear normal. Extramucosal spaces appear unremarkable. Glands: The parotid and submandibular glands appear normal, without stones. Thyroid gland is within normal limits. Miscellaneous: Visualized brain and orbits appear normal. Spine degenerative disc disease and facet arthropathy. Status post C5-C7 ACDF. Orthopedic hardware is intact and in expected position. Lung apices appear clear. Superficial soft tissues appear normal. IMPRESSION: 1. No abnormal mass, fluid collections or soft tissue edema identified deep to metallic BB localizer at the anterior lower right neck in the region of clinical interest. 2. No lymphadenopathy based on size criteria. 3. No mucosal-based mass. 4. Status post C5-C7 ACDF. Dictated by: Janina Blanco MD, PhD on 01/29/2022 at 15:13 Approved by: Janina Blanco MD, PhD on 01/29/2022 at 15:17
== END ==
PROVIDERS: Family Provider Family Medicine; PCP Family Medicine; Referring Provider Family Medicine; Visit Provider Family Medicine
DX: R22.1 Localized swelling, mass and lump, neck (principal); Z98.1 Arthrodesis status
CPT/HCPCS: 70490

== ENCOUNTER → 2022-04-15 09:09 | Outpatient (CLI) | payer OTHER, SELFPAY ==
[2019-02-03 13:17] VITALS: BMI 39.4
[2022-04-15 11:08] LABS: COVID19 -Nasal RAPID Negative (Negative)
== END ==
PROVIDERS: Family Provider Family Medicine; PCP Family Medicine; Visit Provider Surgery
DX: Z20.822 Contact with and (suspected) exposure to COVID-19 (principal); Z01.812 Encounter for preprocedural laboratory examination
CPT/HCPCS: 87635; C9803

== ENCOUNTER 2022-04-16 06:30 | Day surgery (SDC) | payer OTHER, SELFPAY ==
[2019-02-03 13:17] VITALS: BMI 39.4
[2022-04-16] MEDS: LACTATED RINGERS 1,000 ML 200 ML IV (07:12)
[2022-04-16 07:36] VITALS: BP 150/94; PULSE 69; RESP 16; TEMP 36.8; O2SAT 95
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
--- NOTE | 2022-04-16 08:06 | P.OP.COLON_ITS ---
Operative Date/Time/Diagnoses Date of procedure: 04/16/22 Time of procedure: 08:06 Pre-op diagnosis: Family history of colon cancer Screening Post-op diagnosis: same Procedure & Clinicians Study performed: Colonoscopy Same procedure as scheduled: Yes Indications: Family history of colon cancer Screening Surgeon: Haresh Richard Procedure Notes Procedure in detail: Medications: Conscious sedation using 7mg IV midazolam and 150mcg IV of fenta nyl The history and physical was performed/updated and the patient is ASA class is 2. The procedure was discussed in detail with the patient. Potential risks complications including infection, bleeding, missed diagnosis, perforation, need for surgery, and were explained. Their questions were answered and informed consent was obtained. Patient was brought to the procedure room and placed standard monitoring equipment. The patient's vital signs were monitored continuously throughout the entire procedure. Prior to starting time-out was performed. The patient was placed in the left lateral recumbent position. Procedural sedation was administered. Examination began with a thorough inspection of the perianal area there was no evidence of fissures, fistulae, external hemorrhoids or cutaneous malignancy. The colonoscopy scope was then placed into the anal canal and was advanced to the cecum, which was identified by the ileocecal valve, the appendiceal orifice and the confluence of the taenia. The scope was then slowly withdrawn examining colon thoroughly in all directions, irrigating it of any residual stool. FINDINGS 1. Status post sigmoid colectomy. Anastomosis is widely patent. 2. No masses or polyps 3. Diverticulosis The patient tolerated the procedure well. They will be discharged once criteria are met. The prep was of good/excellent quality. The withdrawl time was 6 minutes. The sedation time was 12 minutes. Specimen(s): none sent Complications: none Impression: Normal colonoscopy Post-procedure Recommendations: Colonoscopy in 5 years and High fiber diet Disposition: same day surgery
[2022-04-16] MEDS: fentaNYL 250 MCG/5 ML INJ IV (08:07)
[2022-04-16] MEDS: MIDAZOLAM 5 MG/5 ML VIAL IV (08:08)
[2022-04-16 08:12] VITALS: BP 121/63; PULSE 64; RESP 16; TEMP 36.5; O2SAT 91
[2022-04-16 08:17] VITALS: BP 122/70; PULSE 61; RESP 14; O2SAT 94
[2022-04-16 08:22] VITALS: BP 134/88; PULSE 68; RESP 16; TEMP 36.3; O2SAT 94
[2022-04-16 08:30] VITALS: BP 140/94; PULSE 64; RESP 18; O2SAT 96
[2022-04-16 08:34] VITALS: BP 138/76; PULSE 64; RESP 14; O2SAT 96
== END 2022-04-16 08:45 | disposition home or self-care (01) ==
PROVIDERS: Family Provider Family Medicine; PCP Family Medicine; Referring Provider Surgery; Visit Provider Surgery
PROC: 0DJD8ZZ Inspection of Lower Intestinal Tract, Via Natural or Artificial Opening Endoscopic (ICD-10-PCS; CPT 45378; principal; 2022-04-16 07:45)
DX: Z12.11 Encounter for screening for malignant neoplasm of colon (principal); Z80.0 Family history of malignant neoplasm of digestive organs; Z90.49 Acquired absence of other specified parts of digestive tract; K57.30 Diverticulosis of large intestine without perforation or abscess without bleeding
CPT/HCPCS: 45378; 99152; J2250; J3010

== ENCOUNTER → 2022-07-19 12:23 | Outpatient (CLI) | payer OTHER, SELFPAY ==
[2019-02-03 13:17] VITALS: BMI 39.4
== END ==
PROVIDERS: Family Provider Family Medicine; PCP Family Medicine; Visit Provider Registered Nurse
DX: R10.9 Unspecified abdominal pain (principal)
CPT/HCPCS: 87077; 87086; 87186

== ENCOUNTER → 2022-07-19 13:49 | Outpatient (CLI) | payer OTHER, SELFPAY ==
[2019-02-03 13:17] VITALS: BMI 39.4
--- NOTE | 2022-07-19 13:51 | DI.RAD.S_ITS ---
PROCEDURE: XR CHEST 2V INDICATIONS: right back pain - T10 TECHNIQUE: 2 views of the chest were acquired. COMPARISON: [facility], CR, XR CHEST 1V, 12/20/2021, 16:29. FINDINGS: Surgical changes and devices: Cervical spine fixation hardware is partially seen. Lungs and pleura: Lungs are clear. No pleural effusions or pneumothorax. Mediastinum: Mediastinal contours are normal. Heart size is normal. Bones and chest wall: No suspicious bony abnormalities. Age-appropriate bony degenerative changes are seen. Remote, stable left posterior rib fractures are seen. Soft tissues appear unremarkable. IMPRESSION: No acute abnormality can be seen. Please consider follow-up CT versus thoracic spine MRI for further evaluation (assuming that there is no contraindication). Postoperative and degenerative changes are seen. Dictated by: Yahir Austin M.D. on 07/19/2022 at 13:23 Approved by: Yahir Austin M.D. on 07/19/2022 at 13:25
== END ==
PROVIDERS: Family Provider Family Medicine; PCP Family Medicine; Referring Provider Registered Nurse; Visit Provider Registered Nurse
DX: M54.9 Dorsalgia, unspecified (principal); R10.9 Unspecified abdominal pain
CPT/HCPCS: 71046; 87077; 87086; 87186

== ENCOUNTER → 2022-07-31 14:39 | Outpatient (CLI) | payer OTHER, SELFPAY ==
[2019-02-03 13:17] VITALS: BMI 39.4
--- NOTE | 2022-07-31 14:40 | DI.RAD.S_ITS ---
PROCEDURE: XR LUMBAR SPINE MIN 4V INDICATIONS: pain TECHNIQUE: 5 views of the lumbar spine were acquired, including bilateral oblique views. COMPARISON: [facility], CR, XR LUMBAR SPINE 2-3V, 02/03/2019, 11:02. FINDINGS: Bones: 5 nonrib-bearing vertebrae are present. There is posterior fusion at L3-4 with intervertebral spacer. Hardware is intact. Multilevel mild degenerative disc space narrowing is present, moderate at L4-5 and L5-S1. Moderate foraminal narrowing is also present at these levels. No vertebral body compression fractures. No suspicious bony lesions. Soft tissues: Overlying bowel gas pattern is normal. No suspicious soft tissue calcifications. Oblique images: No pars defects. IMPRESSION: Postsurgical and degenerative changes as above. Dictated by: Juana Huffman M.D. on 07/31/2022 at 17:02 Approved by: Juana Huffman M.D. on 07/31/2022 at 17:03
== END ==
PROVIDERS: Family Provider Family Medicine; PCP Nurse Practitioner; Referring Provider Family Medicine; Visit Provider Family Medicine
DX: M48.061 Spinal stenosis, lumbar region without neurogenic claudication (principal); M48.07 Spinal stenosis, lumbosacral region; M54.6 Pain in thoracic spine; Z98.1 Arthrodesis status
CPT/HCPCS: 72110

== ENCOUNTER → 2022-10-08 16:22 | Outpatient (CLI) | payer OTHER, SELFPAY ==
[2019-02-03 13:17] VITALS: BMI 39.4
--- NOTE | 2022-10-08 16:22 | DI.RAD.S_ITS ---
PROCEDURE: XR CHEST 2V INDICATIONS: SOB r/t URI TECHNIQUE: 2 views of the chest were acquired. COMPARISON: [facility], CR, XR CHEST 2V, 07/19/2022, 13:55. FINDINGS: Surgical changes and devices: Cervical spine fixation hardware is stable.. Lungs and pleura: Lungs are clear. No pleural effusions or pneumothorax. Mediastinum: Mediastinal contours are normal. Heart size is normal. Bones and chest wall: Old left-sided rib fractures are stable. No suspicious bony abnormalities. Soft tissues appear unremarkable. IMPRESSION: No acute cardiopulmonary disease process. Dictated by: Janina Blanco MD, PhD on 10/08/2022 at 16:44 Approved by: Janina Blanco MD, PhD on 10/08/2022 at 16:44
== END ==
PROVIDERS: Family Provider Family Medicine; PCP Nurse Practitioner; Referring Provider Nurse Practitioner; Visit Provider Nurse Practitioner
DX: R06.2 Wheezing (principal)
CPT/HCPCS: 71046

== ENCOUNTER 2024-01-11 12:08 | Emergency (ER) | payer OTHER, MEDICAID, SELFPAY ==
[2022-10-11 12:13] VITALS: BMI 39.4
[2024-01-11] VITALS (8 sets, daily range): BP systolic 133–170; BP diastolic 60–82; PULSE 66–71; RESP 16; TEMP 37.6; O2SAT 91–96; BMI 42.3
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
[2024-01-11] MEDS: MORPHINE 4 MG/ML INJ IV (13:44)
[2024-01-11] MEDS: SODIUM CHLORIDE 0.9% 1,000 ML 1000 ML IV (13:44)
[2024-01-11] MEDS: ONDANSETRON 4 MG/2 ML INJ IV (13:44)
[2024-01-11 13:48] LABS: Add Manual Diff / Slide Review NO; Basophils Absolute Auto 100 /uL (0-100); Basophils Percent Auto 0.5 % (0-2); Eosinophils Absolute Auto 100 /uL (0-450); Eosinophils Percent Auto 0.3 % (2-4); Hematocrit 40.3 % (36-46); Hemoglobin 13.4 g/dL (12.0-16.0); Lymphocytes Absolute Auto 2400 /uL (1100-4500); Lymphocytes Percent Auto 13.9 % (25-40); Mean Corpuscular HGB Conc 33.3 % (30-36); Mean Corpuscular Hemoglobin 31.7 PG (26-34); Monocytes Absolute Auto 1200 /uL (0-900); Neutrophils Absolute Auto 13400 /uL (1500-7000); Neutrophils Percent Auto 78.3 % (50-75); Platelet Count 299 X10^3/uL (150-400); Red Blood Cell Count 4.24 X10^6/uL (4.0-5.2); Red Cell Distribution Width 13.9 % (11.6-14.8); White Blood Cell Count 17.2 X10^3/uL (4.5-11.0)
[2024-01-11 14:00] LABS: Alanine Aminotransferase 36 IU/L (<35); Albumin 4.7 g/dL (3.5-5.0); Albumin Globulin Ratio 1.3 (1.0-2.8); Alkaline Phosphatase 76 U/L (38-126); Aspartate Aminotransferase 31 IU/L (14-36); BUN Creatinine Ratio 13.6 (6-22); Blood Urea Nitrogen 9 mg/dL (7-17); Calcium 9.5 mg/dL (8.4-10.2); Carbon Dioxide 28 mmol/L (22-32); Chloride 104 mmol/L (98-107); Estimated Glomerular Filt Rate > 60 mL/min (>60); Globulin 3.7 g/dL (1.7-4.1); Glucose 116 mg/dL (70-100); HEMOLYSIS 21 (0-50); Lipase 76 U/L (23-300); Potassium 3.8 mmol/L (3.4-5.1); Sodium 137 mmol/L (137-145); Total Protein 8.4 g/dL (6.3-8.2)
[2024-01-11] MEDS: HYDROCODONE/ACET 5/325 TABLET 1 TAB PO (15:21)
== END 2024-01-11 15:40 | disposition home or self-care (01) ==
PROVIDERS: Emergency Provider Emergency Medicine; Family Provider Family Medicine; PCP Family Medicine
DX: K57.92 Diverticulitis of intestine, part unspecified, without perforation or abscess without bleeding (principal)
CPT/HCPCS: 36415; 74177; 80053; 81003; 83690; 85025; 96361; 96374; 96375; 99284; J2270; J2405; Q9967

== ENCOUNTER → 2024-01-28 10:11 | Outpatient (CLI) | payer OTHER, MEDICAID, SELFPAY ==
[2022-10-11 12:13] VITALS: BMI 39.4
[2024-01-28 11:15] LABS: Add Manual Diff / Slide Review NO; Basophils Absolute Auto 100 /uL (0-100); Basophils Percent Auto 1.3 % (0-2); Eosinophils Absolute Auto 100 /uL (0-450); Eosinophils Percent Auto 0.8 % (2-4); Hematocrit 39.1 % (36-46); Lymphocytes Absolute Auto 2600 /uL (1100-4500); Lymphocytes Percent Auto 31.1 % (25-40); Mean Corpuscular HGB Conc 33.3 % (30-36); Mean Corpuscular Hemoglobin 31.6 PG (26-34); Mean Corpuscular Volume 94.8 fL (80-100); Monocytes Absolute Auto 700 /uL (0-900); Monocytes Percent Auto 7.7 % (3-14); Neutrophils Absolute Auto 5000 /uL (1500-7000); Neutrophils Percent Auto 59.1 % (50-75); Platelet Count 346 X10^3/uL (150-400); Red Blood Cell Count 4.12 X10^6/uL (4.0-5.2); White Blood Cell Count 8.5 X10^3/uL (4.5-11.0)
[2024-01-28 12:00] LABS: Alanine Aminotransferase 37 IU/L (<35); Albumin 4.1 g/dL (3.5-5.0); Albumin Globulin Ratio 1.4 (1.0-2.8); Alkaline Phosphatase 69 U/L (38-126); Aspartate Aminotransferase 22 IU/L (14-36); BUN Creatinine Ratio 22.2 (6-22); Bilirubin Total 0.7 mg/dL (0.2-1.3); Blood Urea Nitrogen 12 mg/dL (7-17); Calcium 9.6 mg/dL (8.4-10.2); Carbon Dioxide 29 mmol/L (22-32); Chloride 105 mmol/L (98-107); Estimated Glomerular Filt Rate > 60 mL/min (>60); Globulin 2.9 g/dL (1.7-4.1); Glucose 106 mg/dL (70-100); HEMOLYSIS < 15 (0-50); Potassium 4.7 mmol/L (3.4-5.1); Sodium 139 mmol/L (137-145)
== END ==
PROVIDERS: Family Provider Family Medicine; PCP Family Medicine; Referring Provider Family Medicine; Visit Provider Family Medicine
DX: K57.92 Diverticulitis of intestine, part unspecified, without perforation or abscess without bleeding (principal); D64.9 Anemia, unspecified
CPT/HCPCS: 36415; 80053; 85025

== ENCOUNTER → 2024-01-28 10:47 | Oncology outpatient (ONC) | payer OTHER, MEDICAID, SELFPAY ==
[2022-10-11 12:13] VITALS: BMI 39.4
[2024-01-28 11:24] VITALS: BP 141/65; PULSE 59; RESP 16; TEMP 37.2; O2SAT 95
[2024-01-28] MEDS: SODIUM CHLORIDE 0.9% 1,000 ML 1000 ML IV (11:39)
== END ==
PROVIDERS: Family Provider Family Medicine; PCP Family Medicine; Referring Provider Family Medicine; Visit Provider Family Medicine
DX: K57.92 Diverticulitis of intestine, part unspecified, without perforation or abscess without bleeding (principal); E86.0 Dehydration; D64.9 Anemia, unspecified
CPT/HCPCS: 36415; 80053; 85025; 96360

== ENCOUNTER → 2024-03-31 17:06 | Outpatient (CLI) | payer OTHER, MEDICAID, SELFPAY ==
[2022-10-11 12:13] VITALS: BMI 39.4
== END ==
PROVIDERS: Family Provider Family Medicine; PCP Family Medicine; Referring Provider Family Medicine; Visit Provider Family Medicine
DX: Z84.81 Family history of carrier of genetic disease (principal)
CPT/HCPCS: 36415

== ENCOUNTER → 2024-07-02 18:00 | Outpatient (CLI) | payer OTHER, SELFPAY ==
[2022-10-11 12:13] VITALS: BMI 39.4
== END ==
PROVIDERS: Family Provider Family Medicine; PCP Family Medicine; Visit Provider Nurse Practitioner Family
DX: J02.9 Acute pharyngitis, unspecified (principal)
CPT/HCPCS: 87070

== ENCOUNTER → 2024-12-09 06:58 | Outpatient (CLI) | payer OTHER, SELFPAY ==
[2022-10-11 12:13] VITALS: BMI 39.4
[2024-12-09 08:32] LABS: Add Manual Diff / Slide Review NO; Basophils Absolute Auto 100 /uL (0-100); Basophils Percent Auto 1.4 % (0-2); Eosinophils Absolute Auto 200 /uL (0-450); Hemoglobin 13.3 g/dL (12.0-16.0); Lymphocytes Absolute Auto 3500 /uL (1100-4500); Lymphocytes Percent Auto 42.9 % (25-40); Mean Corpuscular HGB Conc 33.2 % (30-36); Mean Corpuscular Hemoglobin 31.2 PG (26-34); Mean Corpuscular Volume 93.9 fL (80-100); Monocytes Absolute Auto 500 /uL (0-900); Neutrophils Absolute Auto 3800 /uL (1500-7000); Neutrophils Percent Auto 46.7 % (50-75); Platelet Count 312 X10^3/uL (150-400); Red Blood Cell Count 4.26 X10^6/uL (4.0-5.2); Red Cell Distribution Width 13.7 % (11.6-14.8); White Blood Cell Count 8.1 X10^3/uL (4.5-11.0)
[2024-12-09 08:57] LABS: Alanine Aminotransferase 39 IU/L (<35); Albumin 4.4 g/dL (3.5-5.0); Albumin Globulin Ratio 1.7 (1.0-2.8); Alkaline Phosphatase 87 U/L (38-126); Aspartate Aminotransferase 32 IU/L (14-36); BUN Creatinine Ratio 23.6 (6-22); Bilirubin Total 0.8 mg/dL (0.2-1.3); Blood Urea Nitrogen 17 mg/dL (7-17); Calcium 9.3 mg/dL (8.4-10.2); Carbon Dioxide 26 mmol/L (22-32); Chloride 105 mmol/L (98-107); Cholesterol 220 mg/dL (140-199); Estimated Glomerular Filt Rate > 60 mL/min (>60); Globulin 2.6 g/dL (1.7-4.1); Glucose 109 mg/dL (70-100); HDL Cholesterol 54 mg/dL (40-60); HEMOLYSIS < 15 (0-50); LDL Cholesterol Calculated 145 mg/dL (<100); Lipase 169 U/L (23-300); Potassium 4.5 mmol/L (3.4-5.1); Sodium 139 mmol/L (137-145); Triglycerides 104 mg/dL (35-150)
[2024-12-09 09:04] LABS: Appearance Urine UA CLEAR; Bilirubin Urine UA NEGATIVE (NEGATIVE); Color Urine UA YELLOW; Glucose Urine UA NEGATIVE (Negative); Ketones Urine UA NEGATIVE (NEGATIVE); Leukocyte Esterase Urine UA NEGATIVE (NEGATIVE); Nitrite Urine UA NEGATIVE (Negative); Occult Blood Urine UA NEGATIVE (Negative); Protein Urine UA NEGATIVE (Negative); Specific Gravity Urine UA 1.025 (1.000-1.035); Urobilinogen Urine UA 0.2 E.U./dL (0.2)
[2024-12-09 09:17] LABS: Urine Volume 10mL (spun)
[2024-12-09 09:19] LABS: Bacteria Urine Many (>30); Culture Indicated Urine Cult Not Indicated; RBC Urine None Seen (0-5/HPF); Squamous Epithelial Cell Urine 1-5 /HPF (0-5/HPF); WBC Urine 0-1/HPF (0-5/HPF)
[2024-12-09 09:21] LABS: TSH w/ Reflex to FT4 2.42 uIU/mL (0.47-4.68)
[2024-12-10 09:40] LABS: Insulin Level Total 18.4 uIU/mL (2.6-24.9)
== END ==
PROVIDERS: Family Provider Family Medicine; PCP Family Medicine; Referring Provider Family Medicine; Visit Provider Family Medicine
DX: Z00.00 Encounter for general adult medical examination without abnormal findings (principal); R53.83 Other fatigue; I10 Essential (primary) hypertension; G47.00 Insomnia, unspecified; E66.01 Morbid (severe) obesity due to excess calories; R10.9 Unspecified abdominal pain
CPT/HCPCS: 36415; 80053; 80061; 81001; 83036; 83525; 83690; 84443; 85025

== ENCOUNTER → 2025-03-31 17:20 | Outpatient (CLI) | payer OTHER, SELFPAY ==
[2025-03-24 10:15] VITALS: BMI 39.4
--- NOTE | 2025-03-31 17:22 | DI.RAD.S_ITS ---
PROCEDURE: XR ANKLE LT MIN 3V INDICATIONS: persistent severe pain, rule out avulsion fracture TECHNIQUE: 3 views of the ankle were acquired. COMPARISON: None. FINDINGS: Bones: No fractures or dislocations. Ankle mortise is normally aligned. No suspicious bony lesions. Mild midfoot joint degeneration. Mild calcaneal enthesopathy. Soft tissues: No tibiotalar joint effusion. Achilles tendon appears normal. Mild medial and lateral soft tissue swelling. IMPRESSION: Mild midfoot joint degeneration and calcaneal enthesopathy. If pain persists, consider cross-sectional imaging such as CT or MRI. Dictated by: Sidney Kay [facility] Interpreted: Juana Huffman MD on 04/02/2025 at 12:12 Transcribed by: NANY on 04/02/2025 at 12:13 Approved by: Juana Huffman M.D. on 04/04/2025 at 7:43
== END ==
PROVIDERS: Family Provider Family Medicine; PCP Family Medicine; Referring Provider Family Medicine; Visit Provider Family Medicine
DX: S93.429A Sprain of deltoid ligament of unspecified ankle, initial encounter (principal); M19.072 Primary osteoarthritis, left ankle and foot; M77.32 Calcaneal spur, left foot; M79.89 Other specified soft tissue disorders; X58.XXXA Exposure to other specified factors, initial encounter
CPT/HCPCS: 73610

== ENCOUNTER → 2025-04-09 07:45 | Outpatient (CLI) | payer OTHER, SELFPAY ==
[2025-03-24 10:15] VITALS: BMI 39.4
--- NOTE | 2025-04-09 07:47 | DI.MG.S_ITS ---
MM screening mammo BI: 04/09/2025. BI-RADS: 1 CLINICAL: 59-year old female for bilateral screening mammogram. Tyrer-Cuzick lifetime risk of 15.8%. No personal or first-degree family history of breast cancer. PRIOR EXAMS 11/13/2019. MAMMOGRAPHY TECHNIQUE: 2D and 3D (tomosynthesis) digital mammographic views obtained, with additional images as needed for full coverage. Current study was also evaluated with a Computer Aided Detection (CAD) system. DENSITY B. There are scattered areas of fibroglandular density. MAMMOGRAPHY FINDINGS Bilateral: No suspicious mass, asymmetry, microcalcification, or other abnormality seen. IMPRESSION: * No evidence of malignancy. RECOMMENDATIONS Bilateral * Annual screening mammography. OVERALL ASSESSMENT CATEGORY BI-RADS-1: Negative. The [employer] recommends annual screening mammography beginning at age 40 for women with average risk of breast cancer. ELECTRONICALLY SIGNED: Vish Alatorre M.D. on 04/11/2025 at 08:00:40 AM PT Interpreting Station ID: [id number]
== END ==
PROVIDERS: Family Provider Family Medicine; PCP Family Medicine; Referring Provider Family Medicine; Visit Provider Family Medicine
DX: Z12.31 Encounter for screening mammogram for malignant neoplasm of breast (principal)
CPT/HCPCS: 77063; 77067

== ENCOUNTER → 2025-05-02 17:31 | Outpatient (CLI) | payer OTHER, SELFPAY ==
[2025-03-24 10:15] VITALS: BMI 39.4
--- NOTE | 2025-05-02 17:35 | DI.MRI.S_ITS ---
PROCEDURE: MR ANKLE LT WO CON INDICATIONS: Left medial ankle pain TECHNIQUE: Noncontrast sagittal T1 spin echo and T2 fast spin echo with fat saturation, axial proton density fast spin echo and T2 fast spin echo with fat saturation, coronal T1 spin echo and T2 fast spin echo with fat saturation through the ankle/hindfoot. COMPARISON: None. FINDINGS: Image quality: Excellent. Bones and joints: Mild soft tissue swelling around distal lower leg extending to hindfoot and midfoot is seen. Osteoarthritic changes are noted in midfoot and hindfoot joints with joint space narrowing and subchondral sclerosis. No bone marrow contusions or fractures. No hindfoot coalitions. No osteochondral injuries of the talar dome. Small tibiotalar joint effusion, no loose bodies. Well-defined plantar calcaneal enthesophyte is seen. Medial structures: The posterior tibialis is thickened with moderate amount of fluid distending tendon sheath and intrasubstance T2 hyperintense signal at the level of tibiotalar joint extending to the level of talonavicular joint. The flexor digitorum longus, and flexor hallucis longus tendons are intact. The posterior tibial neurovascular bundle appears normal within the tarsal tunnel, without extrinsic mass effect. The deltoid ligament and spring ligament are thickened with intrasubstance T2 hyperintense signal. Lateral structures: The anterior talofibular, calcaneofibular, and posterior talofibular ligaments appear thickened with subtle intrasubstance T2 hyperintense signal. More superiorly, the anterior and posterior tibiofibular ligaments appear intact, as is the intermalleolar ligament. The tibiofibular syndesmosis is normal in width at 2 mm or less. The peroneus brevis tendon is intact. Thickened peroneus longus tendon with small amount of fluid distending tendon sheath at the level of lateral malleolus tip extending to its distal insertion with intrasubstance T2 hyperintense signal at the level of mid to distal calcaneus extending to its distal insertion is seen. The sinus tarsi demonstrates normal fatty signal, without edema, fibrosis, or cyst formation. Anterior structures: The tibialis anterior, extensor hallucis longus, and extensor digitorum longus tendons appear intact. The dorsal talonavicular ligament appears intact. Posterior and plantar structures: Achilles tendon is intact. Thickened medial band of plantar fascia extending to its plantar calcaneal insertion is seen. No abductor digiti quinti muscle atrophy to suggest Traore neuropathy. IMPRESSION: 1. Mild midfoot and hindfoot joint osteoarthritis. Ankle soft tissue swelling. No fracture or dislocation. No osteochondral injuries of talar dome. Small amount of joint effusion, no loose bodies. 2. Moderate grade tenosynovitis and low-grade intrasubstance partial-thickness tear involving posterior tibialis tendon at the level of tibiotalar joint extending to the level of talonavicular joint. 3. Low-grade tendinosis and intrasubstance partial-thickness tear involving peroneus longus tendon at the level of mid to distal calcaneus extending to its distal insertion. 4. Sprain/low to moderate grade intrasubstance partial-thickness tear involving medial ankle ligaments. Low-grade intrasubstance partial-thickness tear involving anterior and posterior talofibular ligaments and calcaneofibular ligament. No full-thickness ankle ligament rupture. 5. Well-defined plantar calcaneal enthesophyte with thickened plantar fascia at its calcaneal insertion low to moderate grade plantar fasciitis. Dictated by: Len Hernandez M.D. on 05/03/2025 at 9:24 Approved by: Len Hernandez M.D. on 05/03/2025 at 9:49
== END ==
PROVIDERS: Family Provider Family Medicine; PCP Family Medicine; Referring Provider Orthopaedic Surgery; Visit Provider Orthopaedic Surgery
DX: S96.812A Strain of other specified muscles and tendons at ankle and foot level, left foot, initial encounter (principal); S93.492A Sprain of other ligament of left ankle, initial encounter; S93.412A Sprain of calcaneofibular ligament of left ankle, initial encounter; M19.072 Primary osteoarthritis, left ankle and foot; M76.822 Posterior tibial tendinitis, left leg; M25.472 Effusion, left ankle; M77.32 Calcaneal spur, left foot; M72.2 Plantar fascial fibromatosis; X58.XXXA Exposure to other specified factors, initial encounter
CPT/HCPCS: 73721

== ENCOUNTER → 2025-08-23 06:47 | Outpatient (CLI) | payer OTHER, SELFPAY ==
[2025-07-28 11:00] VITALS: BMI 39.4
[2025-08-23 08:39] LABS: Alanine Aminotransferase 24 IU/L (<35); Albumin 4.5 g/dL (3.5-5.0); Albumin Globulin Ratio 1.6 (1.0-2.8); Alkaline Phosphatase 77 U/L (38-126); Blood Urea Nitrogen 14 mg/dL (7-17); Calcium 9.5 mg/dL (8.4-10.2); Carbon Dioxide 26 mmol/L (22-32); Chloride 104 mmol/L (98-107); Estimated Glomerular Filt Rate > 60 mL/min (>60); Globulin 2.8 g/dL (1.7-4.1); Glucose 78 mg/dL (70-99); HEMOLYSIS < 15 (0-50); Potassium 4.8 mmol/L (3.4-5.1); Sodium 140 mmol/L (137-145); Total Protein 7.3 g/dL (6.3-8.2)
[2025-08-23 08:45] LABS: Hemoglobin A1C% w Est Avg Glu 5.6 % (4.0-6.0)
== END ==
PROVIDERS: PCP Family Medicine; Referring Provider Family Medicine; Visit Provider Family Medicine
DX: Z01.818 Encounter for other preprocedural examination (principal)
CPT/HCPCS: 36415; 80053; 83036

== ENCOUNTER → 2025-08-26 15:27 | Outpatient (CLI) | payer OTHER, SELFPAY ==
[2025-07-28 11:00] VITALS: BMI 39.4
--- NOTE | 2025-08-26 15:38 | EKG_ITS ---
[place] [id number] [address] [place] [address] Test Date: 2025-08-26 Pat Name: Dayna Craft Department: Room: Gender: Female Facility Assistant: : 1965 Requested By: Order Number: [id number] Reading MD: Olivier Viera MD Measurements Intervals [place] Rate: 61 P: 31 TN: 156 QRS: 16 QRSD: 100 T: 54 QT: 416 QTc: 418 Interpretive Statements Normal sinus rhythm Electronically Signed On 08-27-2025 7:25:10 PDT by Olivier Viera MD
== END ==
PROVIDERS: PCP Family Medicine; Referring Provider Family Medicine; Visit Provider Family Medicine
DX: Z01.818 Encounter for other preprocedural examination (principal)
CPT/HCPCS: 93005; 93010